=== PATIENT | female | born 1960 | race Caucasian/White ===

== ENCOUNTER 2016-12-19 18:15 | Emergency (ER) | payer OTHER ==
[2016-12-19 18:35] VITALS: PULSE 55; TEMP 98.7; BMI 28.2
--- NOTE | 2016-12-19 20:20 | PDOC ---
History of Present Illness - General History Source: Patient Exam Limitations: No Limitations - History of Present Illness Initial Comments: 12/19/16 20:33 The patient is a 56 year old female with significant past medical history of hypertension, autoimmune hepatitis, and carcinoid syndrome (two abdominal carcinoids remover approximately 8-9 years ago. No symptoms since tumors removed ) who presents to the ED for 1 month of increasing left flank pain. Patient reports her pain is persistent and does not radiate. No exacerbating or alleviating factors. Denies dysuria, hematuria, urgency, and frequency. States using tylenol or motrin for the pain with no improvement. Denies any trauma to the area. Denies any recent travels or sick contacts. The patient denies fever, chills, cough, SOB, chest pain, and palpitations. The patient denies abdominal pain, nausea, vomiting, and diarrhea. Allergies: oxycodone HCl, oxycodone, acetaminophen, hydromorphone HCl Social History: No alcohol, tobacco, or drug use reported. Past Surgical History: appendectomy, salpingo oophorectomy, cholecystectomy PCP: Dr. Joyce Sen GI: Dr. Danny [place] General Surgeon: Dr. 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, ACUTE/EMPLOYEE Time Seen by Provider: 12/19/16 19:30 Past History <Viviana Dudley - Last Filed: 12/19/16 20:33> - Past Medical History Anemia: Yes Asthma: No Cancer: Yes (carcenoid sydrome, remission) Cardiac Disorders: No CVA: No COPD: No CHF: No Dementia: No Diabetes: No GI Disorders: Yes (GERD) Disorders: No HTN: Yes Hypercholesterolemia: No Liver Disease: No Seizures: No Thyroid Disease: No - Surgical History Abdominal Surgery: Yes (salpingo oopherectomy) Appendectomy: Yes Cardiac Surgery: No Cholecystectomy: Yes Lung Surgery: No Neurologic Surgery: No Orthopedic Surgery: No - Immunization History Td Vaccination: Yes TDAP Vaccination: Yes Immunization Up to Date: Yes - Psycho/Social/Smoking Cessation Hx Anxiety: No Suicidal Ideation: No Smoking Status: No Smoking History: Never smoked Have you smoked in the past 12 months: No Number of Cigarettes Smoked Daily: 0 Information on smoking cessation initiated: No Hx Alcohol Use: No Drug/Substance Use Hx: No Substance Use Type: None Hx Substance Use Treatment: No <Saravanan Merida - Last Filed: 12/19/16 23:32> - Past Medical History Allergies/Adverse Reactions: Allergies Allergy/AdvReac Type Severity Reaction Status Date / Time oxycodone HCl [From Percocet] Allergy Severe Difficulty Verified 12/19/16 18:26 Breathing oxycodone Allergy Intermediate Itching Verified 12/19/16 18:26 acetaminophen [From Percocet] Allergy Verified 12/19/16 18:26 hydromorphone HCl Allergy Verified 12/19/16 18:26 [From Dilaudid] Home Medications: Ambulatory Orders Nifedipine [Procardia Xl] 60 mg PO DAILY 12/09/15 Alprazolam [Xanax Xr] 1 mg PO PRN 12/19/16 Ibuprofen 800 mg PO TID #30 tablet 12/19/16 Methocarbamol [Robaxin -] 750 mg PO Q8H #30 tablet 12/19/16 Tramadol HCl [Ultram -] 50 mg PO Q6H #20 tablet MDD 4 12/19/16 Review of Systems - Review of Systems Able to Perform ROS?: Yes Comments:: 12/19/16 20:33 CONSTITUTIONAL: Absent: fever, no chills, no fatigue EYES: Absent: visual changes ENT: Absent: ear pain, no sore throat CARDIOVASCULAR: Absent: chest pain, no palpitations RESPIRATORY: Absent: cough, no SOB GI: Absent: abdominal pain, no nausea, no vomiting, no constipation, no diarrhea GENITOURINARY: +L flank pain Absent: dysuria, no frequency, no hematuria MUSCULOSKELETAL: Absent: back pain, no arthralgia, no myalgia SKIN: Absent: rash NEURO: Absent: headache <Viviana Dudley - Last Filed: 12/19/16 20:33> *Physical Exam - Vital Signs Last Vital Signs Temp Pulse Resp BP Pulse Ox 98.7 F 55 L 18 181/90 100 12/19/16 18:27 12/19/16 18:27 12/19/16 18:27 12/19/16 18:27 12/19/16 18:27 - Physical Exam Comments: 12/19/16 20:33 GENERAL: Well-appearing, well-nourished. Mild distress. HEENT: Normocephalic, atraumatic. PERRL, EOM intact. CARDIOVASCULAR: Normal S1, S2. Regular rate and rhythm. PULMONARY: Clear to auscultation bilaterally. ABDOMEN: Soft, non-distended, non-tender. EXTREMITIES: Normal ROM in all four extremities. No gross deformities. MUSCULOSKELETAL: Left cva tenderness SKIN: Warm, dry. No rash NEUROLOGICAL: No focal neurological deficits. <Viviana Dudley - Last Filed: 12/19/16 20:33> - Vital Signs Last Vital Signs Temp Pulse Resp BP Pulse Ox 98.7 F 55 L 18 181/90 100 12/19/16 18:27 12/19/16 18:27 12/19/16 18:27 12/19/16 18:27 12/19/16 18:27 <Saravanan Merida - Last Filed: 12/19/16 23:32> ED Treatment Course - LABORATORY CBC & Chemistry Diagram: 12/19/16 20:33 12/19/16 20:33 <Saravanan Merida - Last Filed: 12/19/16 23:32> Medical Decision Making - Medical Decision Making 12/19/16 23:31 Dr. Merida: The scribe's documentation has been prepared under my direction and personally reviewed by me in its entirery. I confirm that the note above accurately reflects all work, treatment, procedures, and medical decision making performed by me. All studies return to be stable. Pt still having slight pain despite treatment in the department. Pt to be discharged and follow up with pcp. <Saravanan Merida - Last Filed: 12/19/16 23:32> *DC/Admit/Observation/Transfer - Attestations Scribe Attestion: 12/19/16 20:34 Documentation prepared by Viviana Dudley, acting as medical office secretary for Saravanan Merida MD/DO. <Viviana Dudley - Last Filed: 12/19/16 20:33> - Discharge Dispostion Admit: No <Saravanan Merida - Last Filed: 12/19/16 23:32> Diagnosis at time of Disposition: Back pain Qualifiers: Chronicity: acute Back pain laterality: left Sciatica presence: without sciatica - Discharge Dispostion Disposition: HOME Condition at time of disposition: Stable - Prescriptions Prescriptions: Ibuprofen 800 mg PO TID #30 tablet Methocarbamol [Robaxin -] 750 mg PO Q8H #30 tablet Tramadol HCl [Ultram -] 50 mg PO Q6H #20 tablet MDD 4 - Referrals Referrals: Joyce Sen MD [Primary Care Provider] - - Patient Instructions Printed Discharge Instructions: DI for Thoracic Back Pain, DI for Low Back Pain
[2016-12-19] MEDS ORDERED: KETOROLAC TROMETHAMINE 30 MG/1 ML VIAL IVPUSH ONE (20:22)
[2016-12-19] MEDS ORDERED: KETOROLAC TROMETHAMINE 30 MG/1 ML VIAL ONE (20:38)
[2016-12-19 20:44] LABS: BASOPHIL 0.8 % (0-2.0); EOSINOPHIL 2.5 % (0-4.5); MCHC 32.5 g/dl (32.0-36.0); MEAN CELL VOLUME 92.3 fl (80-96); MEAN PLT VOLUME 10.5 fl (7.5-11.1); NEUTROPHILS 49.3 % (42.8-82.8); PLATELET COUNT 247 K/MM3 (134-434); RDW 14.9 % (11.6-15.6); WHITE BLOOD COUNT 6.1 K/mm3 (4.0-10.0)
[2016-12-19 21:02] LABS: INR 1.06 (0.82-1.09); PROTHROMBIN TIME (PATIENT) 11.7 SEC (9.98-11.88)
[2016-12-19 21:12] LABS: ALBUMIN 4.2 g/dl (3.4-5.0); AMYLASE 51 U/L (25-115); ANION GAP 12 (8-16); BILIRUBIN,TOTAL 0.8 mg/dL (0.2-1.0); CALCIUM 8.8 mg/dL (8.5-10.1); CO2 25 mmol/L (21-32); COCKROFT - GAULT 99.5605; CREATININE 0.8 mg/dL (0.55-1.02); GLUCOSE,RANDOM 80 mg/dL (74-106); MAGNESIUM 2.2 mg/dL (1.8-2.4); SGOT/AST 23 U/L (15-37); SGPT/ALT 26 U/L (12-78); TOT PROT 8.3 g/dl (6.4-8.2)
[2016-12-19 21:13] LABS: ALK PHOS 92 U/L (45-117); TROPONIN I < 0.02 ng/ml (0.00-0.05)
[2016-12-19 21:41] LABS: URINE APPEARANCE CLEAR; URINE BILIRUBIN NEGATIVE (NEGATIVE); URINE BLOOD NEGATIVE (NEGATIVE); URINE COLOR LTYELLOW; URINE GLUCOSE (UA) NEGATIVE (NEGATIVE); URINE KETONE NEGATIVE (NEGATIVE); URINE NITRITE NEGATIVE (NEGATIVE); URINE PROTEIN NEGATIVE (NEGATIVE); URINE UROBILINOGEN NEGATIVE E.U./dl (0.2-1.0)
[2016-12-19 22:04] LABS: URINE LEUK ESTERASE TRACE (NEGATIVE)
[2016-12-19 22:37] LABS: URINE MUCUS RARE; URINE WBC 2 /hpf (3-5)
[2016-12-19] MEDS ORDERED: GABAPENTIN 300 MG CAPSULE (FP) PO ONE (22:47)
[2016-12-19] MEDS ORDERED: GABAPENTIN 100 MG CAPSULE (FP) ONE (22:54)
[2016-12-19] MEDS ORDERED: morphine CARPU-JECT 2 MG/1 ML DISP.SYRIN IVPUSH ONE (23:25)
[2016-12-19] MEDS ORDERED: morphine CARPU-JECT 2 MG/1 ML DISP.SYRIN ONE (23:47)
[2016-12-20 00:04] VITALS: BP 146/90
[2016-12-20 14:52] LABS: URINE RBC <1 /hpf (0-3)
== END 2016-12-20 00:05 | disposition home or self-care (01) ==
LOC: JER 18:15
PROC: 3E033NZ Introduction of Analgesics, Hypnotics, Sedatives into Peripheral Vein, Percutaneous Approach (ICD-10-PCS; principal; 2016-12-19)
PROC: 3E0233Z Introduction of Anti-inflammatory into Muscle, Percutaneous Approach (ICD-10-PCS; 2016-12-19)
DX: M54.6 Pain in thoracic spine (principal); M54.5 Low back pain; I10 Essential (primary) hypertension; K75.4 Autoimmune hepatitis; E34.0 Carcinoid syndrome
CPT/HCPCS: 36415; 74176; 80053; 81003; 81015; 82150; 82550; 83690; 83735; 84484; 85025; 85610; 87086; 99285-25

== ENCOUNTER 2016-12-20 00:53 | Emergency (ER) | payer OTHER ==
[2016-12-20] MEDS ORDERED: ASPIRIN 81 MG CHEWABLE TABLETS PO ONE (00:55)
--- NOTE | 2016-12-20 00:55 | PDOC ---
History of Present Illness - General History Source: Patient Exam Limitations: No Limitations - History of Present Illness Initial Comments: 12/20/16 02:28 The patient is a 56 year old female with significant past medical history of hypertension, autoimmune hepatitis, and carcinoid syndrome (two abdominal carcinoids remover approximately 8-9 years ago. No symptoms since tumors removed ) who presents to the ED for chest pain and SOB prior to arrival. Patient was in the ER a few hours ago for left flank pain, where she had a spiral CT, which revealed no signs of sbo, renal calculi and had stable mediastinal lymph nodes that occurred in May 2015. Patient was treated and upon discharge she received 2 mg of morphine for relief of pain. She reports 15 minutes after her discharge she developed chest pain and SOB. Patient states she has pain in her epigastric region that radiates laterally across her chest. Denies lightheadedness, diaphoresis, jaw pain, arm pain, shoulder pain, nausea, or vomiting. The patient denies fever, chills, cough, abdominal pain, and diarrhea. Allergies: oxycodone HCl, oxycodone, acetaminophen, hydromorphone HCl Social History: No alcohol, tobacco, or drug use reported. Past Surgical History: appendectomy, salpingo oophorectomy, cholecystectomy PCP: Dr. Joyce Sen GI: Dr. Danny [place] General Surgeon: Dr. Jabier Leon <Viviana Dudley - Last Filed: 12/20/16 05:32> - General History Source: Patient <Saravanan Merida - Last Filed: 12/20/16 06:23> - General Chief Complaint: Chest Pain Stated Complaint: PAIN Time Seen by Provider: 12/20/16 00:55 Past History <Viviana Dudley - Last Filed: 12/20/16 05:32> - Past Medical History Anemia: Yes Asthma: No Cancer: Yes (carcenoid sydrome, remission) Cardiac Disorders: No CVA: No COPD: No CHF: No Dementia: No Diabetes: No GI Disorders: Yes (GERD) Disorders: No HTN: Yes Hypercholesterolemia: No Liver Disease: No Seizures: No Thyroid Disease: No - Surgical History Abdominal Surgery: Yes (salpingo oopherectomy) Appendectomy: Yes Cardiac Surgery: No Cholecystectomy: Yes Lung Surgery: No Neurologic Surgery: No Orthopedic Surgery: No - Immunization History Td Vaccination: Yes TDAP Vaccination: Yes Immunization Up to Date: Yes - Psycho/Social/Smoking Cessation Hx Anxiety: No Suicidal Ideation: No Smoking Status: No Smoking History: Never smoked Have you smoked in the past 12 months: No Number of Cigarettes Smoked Daily: 0 Hx Alcohol Use: No Drug/Substance Use Hx: No Substance Use Type: None Hx Substance Use Treatment: No <Saravanan Merida - Last Filed: 12/20/16 06:23> - Past Medical History Allergies/Adverse Reactions: Allergies Allergy/AdvReac Type Severity Reaction Status Date / Time oxycodone HCl [From Percocet] Allergy Severe Difficulty Verified 12/20/16 00:55 Breathing oxycodone Allergy Intermediate Itching Verified 12/20/16 00:55 acetaminophen [From Percocet] Allergy Verified 12/20/16 00:55 hydromorphone HCl Allergy Verified 12/20/16 00:55 [From Dilaudid] Home Medications: Ambulatory Orders Nifedipine [Procardia Xl] 60 mg PO DAILY 12/09/15 Alprazolam [Xanax Xr] 1 mg PO PRN 12/19/16 Ibuprofen 800 mg PO TID #30 tablet 12/19/16 Methocarbamol [Robaxin -] 750 mg PO Q8H #30 tablet 12/19/16 Tramadol HCl [Ultram -] 50 mg PO Q6H #20 tablet MDD 4 12/19/16 Review of Systems - Review of Systems Able to Perform ROS?: Yes Comments:: 12/20/16 02:28 CONSTITUTIONAL: Absent: fever, chills, diaphoresis, generalized weakness, malaise, loss of appetite HEENT: Absent: rhinorrhea, nasal congestion, throat pain, throat swelling, difficulty swallowing, mouth swelling, ear pain, eye pain, visual Changes CARDIOVASCULAR: +chest pain Absent: syncope, palpitations, irregular heart rate, lightheadedness , peripheral edema RESPIRATORY: +SOB Absent: cough, dyspnea with exertion, orthopnea, wheezing, stridor, hemoptysis GASTROINTESTINAL: Absent: abdominal pain, abdominal distension, nausea, vomiting, diarrhea, constipation, melena, hematochezia GENITOURINARY: Absent: dysuria, frequency, urgency, hesitancy, hematuria, flank pain, genital pain MUSCULOSKELETAL: Absent: myalgia, arthralgia, joint swelling SKIN: Absent: rash, itching, pallor NEUROLOGIC: Absent: headache, focal weakness or paresthesias, dizziness, unsteady gait, seizure, mental status changes, bladder or bowel incontinence <Viviana Dudley - Last Filed: 12/20/16 05:32> *Physical Exam - Vital Signs Last Vital Signs Temp Pulse Resp BP Pulse Ox 48 L 12 211/102 98 12/20/16 01:25 12/20/16 01:21 12/20/16 01:21 12/20/16 01:25 - Physical Exam Comments: 12/20/16 02:28 GENERAL: Well developed, well nourished. Awake and alert. Moderate distress. HEENT: Normocephalic, atraumatic. PERRLA, EOMI. No conjunctival pallor. Sclera are non- icteric. Moist mucous membranes. Oropharynx is clear. NECK: Supple. Full ROM. No JVD. Carotid pulses 2+ and symmetric, without bruits. No thyromegaly. No lymphadenopathy. CARDIOVASCULAR: Bradycardia. Regular rhythm. No murmurs, rubs, or gallops. Distal pulses are 2+ and symmetric. PULMONARY: No evidence of respiratory distress. Lungs clear to auscultation bilaterally. No wheezing, rales or rhonchi. ABDOMINAL: Soft. Non-tender. Non-distended. No rebound or guarding. No organomegaly. Normoactive bowel sounds. MUSCULOSKELETAL Normal range of motion at all joints. No bony deformities or tenderness. No CVA tenderness. EXTREMITIES: No cyanosis. No clubbing. No edema. No calf tenderness. SKIN: Warm and dry. Normal capillary refill. No rashes. No jaundice. NEUROLOGICAL: Alert, awake, appropriate. Cranial nerves 2-12 intact. Moving all extremities. No gross focal neurological deficits. <Doni Dudleyta - Last Filed: 12/20/16 05:32> Heart Score/ECG Review - ECG Impressions Comment:: 12/20/16 02:08 Sinus bradycardia @52bpm Otherwise normal ECG <Viviana Dudley - Last Filed: 12/20/16 05:32> ED Treatment Course - LABORATORY CBC & Chemistry Diagram: 12/20/16 01:15 12/20/16 01:15 - ADDITIONAL ORDERS Additional order review: Laboratory Results 12/20/16 12/20/16 01:15 01:15 INR 1.04 PTT (Actin FS) 33.9 D-Dimer < 200 Sodium 145 Potassium 3.4 L Chloride 105 Carbon Dioxide 25 Anion Gap 15 BUN 11 Creatinine 0.8 Creat Clearance w eGFR > 60 Random Glucose 92 Calcium 8.7 Magnesium 2.2 Total Bilirubin 0.9 AST 32 D ALT 28 Alkaline Phosphatase 92 Creatine Kinase 132 Troponin I < 0.02 B-Natriuretic Peptide 81.50 Total Protein 7.9 Albumin 3.9 12/20/16 01:15 RBC 4.50 MCV 91.5 MCHC 33.3 RDW 14.5 MPV 10.2 Neutrophils % 39.7 L Lymphocytes % 45.1 H Monocytes % 11.3 H Eosinophils % 3.2 Basophils % 0.7 - Medications Given in the ED: ED Medications Discontinued Medications Generic Name Dose Route Start Last Admin Trade Name Freq PRN Reason Stop Dose Admin Diphenhydramine HCl 25 mg 12/20/16 00:57 12/20/16 01:06 Benadryl Injection - IVPB 12/20/16 00:58 25 mg ONCE ONE Administration <Viviana Dudley - Last Filed: 12/20/16 05:32> - LABORATORY CBC & Chemistry Diagram: 12/20/16 01:15 12/20/16 01:15 <Saravanan Merida - Last Filed: 12/20/16 06:23> Medical Decision Making - Medical Decision Making 12/20/16 05:[address] Joyce Sen (via answering service) at 5:02 Awaiting call back 12/20/16 05:28 Second call placed to Dr. Sen (via answering service) at 5:28 Awaiting call back 12/20/16 05:33 Patient's case discussed with Dr. Sen at 5:33 <Viviana Dudley - Last Filed: 12/20/16 05:32> - Medical Decision Making 12/20/16 01:51 BP now 177/96. HR 50. will wait for lab work. 12/20/16 05:39 Dr. Merida: The scribe's documentation has been prepared under my direction and personally reviewed by me in its entirery. I confirm that the note above accurately reflects all work, treatment, procedures, and medical decision making performed by me. Pt currently sleepy from the Benadryl received early in the shift. Blood Pressure has improve. Spoke to Dr. Joyce Sen. States that if vitals are stable and pt feels better, pt can be discharged. Will sign out for re- assessment 12/20/16 06:22 Pt feels better. States she feels better. Will discharge. Pt to follow up with Dr. Joyce Sen. <Saravanan Merida - Last Filed: 12/20/16 06:23> *DC/Admit/Observation/Transfer - Attestations Scribe Attestion: 12/20/16 02:28 Documentation prepared by Viviana Dudley, acting as clinical medical assistant for Saravanan Merida MD/DO. <Viviana Dudley - Last Filed: 12/20/16 05:32> - Discharge Dispostion Admit: No <Saravanan Merida - Last Filed: 12/20/16 06:23> Diagnosis at time of Disposition: HTN Allergic reaction Qualifiers: Encounter type: initial encounter Qualified Code(s): T78.40XA - Allergy, unspecified, initial encounter - Discharge Dispostion Disposition: HOME Condition at time of disposition: Stable - Patient Instructions Printed Discharge Instructions: DI for General Allergic Reactions, High Blood Pressure
[2016-12-20 01:10] VITALS: BMI 24.2
[2016-12-20] MEDS ORDERED: LORAZEPAM CARPU-JECT 2 MG/ML DISP.SYRIN IVPUSH ONE (01:10)
[2016-12-20] MEDS ORDERED: LORAZEPAM CARPU-JECT 2 MG/ML DISP.SYRIN ONE (01:12)
[2016-12-20 01:31] LABS: BASOPHIL 0.7 % (0-2.0); EOSINOPHIL 3.2 % (0-4.5); MCH 30.4 pg (25.7-33.7); MCHC 33.3 g/dl (32.0-36.0); MEAN CELL VOLUME 91.5 fl (80-96); MEAN PLT VOLUME 10.2 fl (7.5-11.1); NEUTROPHILS 39.7 % (42.8-82.8); PLATELET COUNT 268 K/MM3 (134-434); RDW 14.5 % (11.6-15.6); WHITE BLOOD COUNT 6.5 K/mm3 (4.0-10.0)
[2016-12-20 01:54] LABS: ALBUMIN 3.9 g/dl (3.4-5.0); ANION GAP 15 (8-16); BILIRUBIN,TOTAL 0.9 mg/dL (0.2-1.0); CALCIUM 8.7 mg/dL (8.5-10.1); CO2 25 mmol/L (21-32); CREATININE 0.8 mg/dL (0.55-1.02); GLUCOSE,RANDOM 92 mg/dL (74-106); MAGNESIUM 2.2 mg/dL (1.8-2.4); SGOT/AST 32 U/L (15-37); SGPT/ALT 28 U/L (12-78); TOT PROT 7.9 g/dl (6.4-8.2)
[2016-12-20 01:55] LABS: INR 1.04 (0.82-1.09)
[2016-12-20 01:57] LABS: ALK PHOS 92 U/L (45-117); TROPONIN I < 0.02 ng/ml (0.00-0.05)
[2016-12-20 01:58] LABS: ACTIVATED PTT 33.9 SECONDS (26.9-34.4); D-DIMER < 200 ng/ml (<200-235)
[2016-12-20 05:18] VITALS: BP 143/86; PULSE 42
--- NOTE | 2016-12-20 10:44 | EKG ---
Test Reason : Blood Pressure : / mmHG Vent. Rate : 052 BPM Atrial Rate : 052 BPM P-R Int : 160 ms QRS Dur : 082 ms QT Int : 466 ms P-R-T Axes : 041 013 026 degrees QTc Int : 433 ms SINUS BRADYCARDIA OTHERWISE NORMAL ECG WHEN COMPARED WITH ECG OF 30-JAN-2015 09:52, NO SIGNIFICANT CHANGE WAS FOUND BASELINE ARTIFACT Confirmed by SHANNON MULLIGAN MD ([id number]) on 12/20/2016 10:44:34 AM Referred By: Confirmed By:SHANNON MULLIGAN MD
== END 2016-12-20 06:31 | disposition home or self-care (01) ==
LOC: JER 00:53
PROC: 3E033GC Introduction of Other Therapeutic Substance into Peripheral Vein, Percutaneous Approach (ICD-10-PCS; principal; 2016-12-20)
DX: I10 Essential (primary) hypertension (principal); T78.40XA Allergy, unspecified, initial encounter; K75.4 Autoimmune hepatitis; E34.0 Carcinoid syndrome
CPT/HCPCS: 36415; 71010-TC; 80053; 82550; 83735; 83880; 84484; 85025; 85379; 85610; 85730; 93005; 93010; 99285-25

== ENCOUNTER 2017-02-21 12:38 | Emergency (ER) | payer OTHER ==
[2017-02-21 12:44] VITALS: BP 160/99; PULSE 85; TEMP 98.7; BMI 33.2
--- NOTE | 2017-02-21 14:01 | PDOC ---
History of Present Illness - General Chief Complaint: Cold Symptoms Stated Complaint: CHEST PRESSURE Time Seen by Provider: 02/21/17 14:01 History Source: Patient - History of Present Illness Initial Comments: 02/21/17 14:06 Patient is a 56-year-old female with PMH of HTN, autoimmune hepatitis, hx of carcinoid tumors, who presents to the emergency department complaining of body aches, chest pressure, congestion, and cough. Patient states that her symptoms began yesterday. He states that she feels short of breath when trying to take a deep breath and that there is some pressure in her chest as a result. She states that she was coughing all night. She took NyQuil with little relief. She is not taking anything for pain. Admits to frequency and urgency. Denies fevers , chills, chest pain, wheezing, palpitations, edema, nausea, vomiting and diarrhea. Past History - Travel Traveled outside of the country in the last 30 days: No Close contact w/someone who was outside of country & ill: No - Past Medical History Allergies/Adverse Reactions: Allergies Allergy/AdvReac Type Severity Reaction Status Date / Time oxycodone HCl [From Percocet] Allergy Severe Difficulty Verified 02/21/17 12:40 Breathing oxycodone Allergy Intermediate Itching Verified 02/21/17 12:40 hydromorphone HCl Allergy Verified 02/21/17 12:40 [From Dilaudid] morphine AdvReac Difficulty Verified 02/21/17 12:40 Breathing Home Medications: Ambulatory Orders Nifedipine [Procardia Xl] 60 mg PO DAILY 12/09/15 Alprazolam [Xanax Xr] 1 mg PO PRN 12/19/16 Ibuprofen 800 mg PO TID #30 tablet 12/19/16 Methocarbamol [Robaxin -] 750 mg PO Q8H #30 tablet 12/19/16 Tramadol HCl [Ultram -] 50 mg PO Q6H #20 tablet MDD 4 12/19/16 Albuterol Sulfate Inhaler - [Ventolin HFA Inhaler -] 1 - 2 inh PO Q4H #1 inhaler 02/21/17 Sulfamethoxazole/Trimethoprim [Bactrim Ds -] 1 tab PO BID #14 tablet 02/21/17 Anemia: Yes Asthma: No Cancer: Yes (carcenoid sydrome, remission) Cardiac Disorders: No CVA: No COPD: No CHF: No Dementia: No Diabetes: No GI Disorders: Yes (GERD) Disorders: No HTN: Yes Hypercholesterolemia: No Liver Disease: No Seizures: No Thyroid Disease: No - Surgical History Abdominal Surgery: Yes (salpingo oopherectomy) Appendectomy: Yes Cardiac Surgery: No Cholecystectomy: Yes Lung Surgery: No Neurologic Surgery: No Orthopedic Surgery: No - Immunization History Td Vaccination: Yes TDAP Vaccination: Yes Immunization Up to Date: Yes - Psycho/Social/Smoking Cessation Hx Anxiety: No Suicidal Ideation: No Smoking Status: No Smoking History: Never smoked Have you smoked in the past 12 months: No Number of Cigarettes Smoked Daily: 0 Information on smoking cessation initiated: No Hx Alcohol Use: No Drug/Substance Use Hx: No Substance Use Type: None Hx Substance Use Treatment: No Review of Systems - Review of Systems Able to Perform ROS?: Yes Is the patient limited Sami proficient: No Constitutional: Yes: Chills, Fever (Tmax 101.4 F oral). No: Malaise, Weakness HEENTM: Yes: Nose Congestion, Throat Pain. No: Recent change in vision, Ear Discharge, Throat Swelling, Difficulty Swallowing Respiratory: Yes: Cough, Shortness of Breath Cardiac (ROS): Yes: Chest Tightness. No: Chest Pain, Lightheadedness, Palpitations ABD/GI: No: Diarrhea, Nausea, Vomiting : Yes: Frequency, Urgency. No: Burning, Dysuria, Hematuria Neurological: Yes: Headache. No: Numbness, Paresthesia, Weakness All Other Systems: Reviewed and Negative *Physical Exam - Vital Signs Last Vital Signs Temp Pulse Resp BP Pulse Ox 98.7 F 85 18 160/99 100 02/21/17 12:42 02/21/17 12:42 02/21/17 12:42 02/21/17 12:42 02/21/17 12:42 - Physical Exam General Appearance: Yes: Nourished, Appropriately Dressed, Mild Distress ( Sitting on exam bed, AAOx3, ) HEENT: positive: EOMI, NIMA, TMs Normal, Pharyngeal Erythema, Nasal Congestion, Rhinorrhea. negative: Tonsillar Exudate, Tonsillar Erythema, TM Erythema Respiratory/Chest: positive: Normal Breath Sounds, Decreased Breath Sounds ( decreased sounds to the bases). negative: Respiratory Distress, Accessory Muscle Use, Rales, Rhonchi, Wheezing Cardiovascular: positive: Regular Rhythm, Regular Rate, S1, S2 (present). negative: Murmur Integumentary: positive: Normal Color, Warm, Moist. negative: Erythema, Rash Neurologic: positive: civil technician II-XII NML intact, Fully Oriented, Alert, Normal Mood/ Affect, Normal Response, Motor Strength 12/16 Medical Decision Making - Medical Decision Making 02/21/17 13:01 He 6-year-old female who presents for with chest tightness and shortness of breath as well as cold symptoms. We will give patient one DuoNeb treatment now and Toradol for her aches. Send urine for UA and UC. We will obtain chest x- ray. We'll reevaluate. EKG obtained in triage shows a normal sinus rhythm with a rate of 73. Flattened T waves in leads 3 and aVF. Otherwise no acute ST-T wave elevations. 02/21/17 13:57 Patient feels better after first DuoNeb treatment will order second DuoNeb as she is still a little diminished at the bases. 02/21/17 14:29 Lungs sound clear after 2 DuoNeb treatments x-ray shows no evidence of pneumonia or acute pulmonary pathology. Urine shows 3+ leuks with blood and white blood cells. We'll treat for UTI at this point we'll place patient on Bactrim DS twice a day and give symptomatic relief for her cold symptoms we'll prescribe albuterol inhaler. Discharge home at this time. Patient is comfortable with discharge plans understands all discharge instructions and all questions were answered at this time. *DC/Admit/Observation/Transfer Diagnosis at time of Disposition: Urinary tract infection Qualifiers: Urinary tract infection type: acute cystitis Hematuria presence: with hematuria Qualified Code(s): N30.01 - Acute cystitis with hematuria Upper respiratory infection Qualifiers: URI type: unspecified viral URI Qualified Code(s): J06.9 - Acute upper respiratory infection, unspecified - Discharge Dispostion Disposition: HOME Condition at time of disposition: Improved Admit: No - Prescriptions Prescriptions: Sulfamethoxazole/Trimethoprim [Bactrim Ds -] 1 tab PO BID #14 tablet Albuterol Sulfate Inhaler - [Ventolin HFA Inhaler -] 1 - 2 inh PO Q4H #1 inhaler - Patient Instructions Printed Discharge Instructions: DI for Common Cold, DI for Urinary Tract Infection (UTI) Additional Instructions: You have a urinary tract infection and an upper respiratory infection. You were prescribed an antibiotic for your UTI. Take the full amount of antibiotic even if you feel better. Drink plenty of fluids including water and cranberry juice. You may use tylenol or ibuprofen as needed for pain. You were also prescribed an albuterol inhaler to be used as needed for SOB. You may use over the counter cold medication for symptomatic relief. Follow up with your primary care doctor in 48 hours Return to the ED if you have worsening shortness of breath, fevers, chest pain, difficulty breathing, or any other changes in your symptoms. - Post Discharge Activity Work/School Note: Back to Work
[2017-02-21 14:58] LABS: URINE APPEARANCE CLEAR; URINE BILIRUBIN NEGATIVE (NEGATIVE); URINE COLOR STRAW; URINE GLUCOSE (UA) NEGATIVE (NEGATIVE); URINE KETONE NEGATIVE (NEGATIVE); URINE NITRITE NEGATIVE (NEGATIVE); URINE PROTEIN NEGATIVE (NEGATIVE); URINE UROBILINOGEN NEGATIVE E.U./dl (0.2-1.0)
[2017-02-21 14:59] LABS: URINE BLOOD 1+ (NEGATIVE); URINE LEUK ESTERASE 3+ (NEGATIVE)
[2017-02-21 15:00] LABS: URINE BACTERIA RARE /hpf (NONE SEEN); URINE MUCUS RARE; URINE RBC 1 /hpf (0-3); URINE WBC 16 /hpf (3-5)
[2017-02-21] MEDS ORDERED: ALBUTEROL SO4 2.5/IPRATROPIUM 0.5 INH SOL 3 ML VIAL.NEB. NEB ONE (15:00)
--- NOTE | 2017-02-27 14:44 | PDOC ---
Patient Follow-up (Call Back) - Post ED Follow - Up Condition at time of discharge: Improved Disposition at time of original discharge: HOME Reason for Call Back: Abnwl. Microbiology (02/21/17 urine c & S showed strep agalactiae group B >100,000 not sensitive to bactrim DS, pt. called left message she called back told to stop bactrim DS and sent rx for levaquin 250 mg daily for 5 days, pt told to not do any strenuous activities or exercise while on this medication. Told to follow up with her PCP for repeat urine testing when medication completed.)
--- NOTE | 2017-03-01 11:41 | EKG ---
Test Reason : Blood Pressure : / mmHG Vent. Rate : 073 BPM Atrial Rate : 073 BPM P-R Int : 154 ms QRS Dur : 082 ms QT Int : 396 ms P-R-T Axes : 031 005 013 degrees QTc Int : 436 ms NORMAL SINUS RHYTHM NORMAL ECG WHEN COMPARED WITH ECG OF 20-DEC-2016 00:53, NO SIGNIFICANT CHANGE WAS FOUND Confirmed by ADAMS MCRAE MD ([id number]) on 03/01/2017 11:40:42 AM Referred By: Confirmed By:ADAMS MCRAE MD
== END 2017-02-21 15:43 | disposition home or self-care (01) ==
LOC: JERFT 12:38
PROC: 3E0F7GC Introduction of Other Therapeutic Substance into Respiratory Tract, Via Natural or Artificial Opening (ICD-10-PCS; principal; 2017-02-21)
DX: J06.9 Acute upper respiratory infection, unspecified (principal); N30.01 Acute cystitis with hematuria
CPT/HCPCS: 71020-TC; 81003; 81015; 87086; 87186; 93005; 93010; 99281-25

== ENCOUNTER 2017-08-19 23:10 | Observation (INO) | payer OTHER ==
--- NOTE | 2017-08-19 23:45 | PDOC ---
History of Present Illness - General History Source: Patient Exam Limitations: No Limitations - History of Present Illness Initial Comments: 08/20/17 00:27 The patient is a 57 year old female, with a significant past medical history of hypertension and carcinoid syndrome (in remission), who presents to the emergency department with, left sided chest pain beginning approx. 29 hours ago. The patient reports that Monday evening around 7pm she began experiencing the chest pain while sitting on the couch watching television. The patient reports she took her blood pressure on a home blood pressure machine and noted her blood pressure was elevated so she took her blood pressure medication with mild relief. Patient reports she woke up this morning with the same chest pain and took her blood pressure medicine again with mild relief. Patient reports the left sided chest pain is constant, radiates to the left arm and neck, and describes the pain as bricks sitting on her chest. Patient reports she experienced the exact same chest pain a couple years ago. She reports associated symptoms of a gradual onset global headache 3 days ago and feeling warm. Patient reports familial history of heart disease from her mother and father. She denies recent travel or surgery. She denies recent palpitations or shortness of breath. She denies recent swelling or calf tenderness. She denies recent fevers, chills, or dizziness. She denies recent nausea, vomit, diarrhea or constipation. She denies recent dysuria, frequency, urgency or hematuria. She last had a stress test [address] James that she reports is negative. Allergies: oxycodone HCL, oxycodone, hydromorphone HCl, morphine Past surgical history: None reported. Primary Care Physician: Dr. Joyce Pena Line Manager: Dr. James <Kumar Maurer - Last Filed: 08/20/17 00:30> <Olayinka Chavis - Last Filed: 08/20/17 01:35> - General Stated Complaint: CHEST PAIN Past History <Kumar Maurer - Last Filed: 08/20/17 00:30> - Past Medical History Anemia: Yes Asthma: No Cancer: Yes (carcenoid sydrome, remission) Cardiac Disorders: No CVA: No COPD: No CHF: No Dementia: No Diabetes: No GI Disorders: Yes (GERD) Disorders: No HTN: Yes Hypercholesterolemia: No Liver Disease: No Seizures: No Thyroid Disease: No - Surgical History Abdominal Surgery: Yes (salpingo oopherectomy) Appendectomy: Yes Cardiac Surgery: No Cholecystectomy: Yes Lung Surgery: No Neurologic Surgery: No Orthopedic Surgery: No - Immunization History Td Vaccination: Yes TDAP Vaccination: Yes Immunization Up to Date: Yes - Suicide/Smoking/Psychosocial Hx Smoking Status: No Smoking History: Never smoked Have you smoked in the past 12 months: No Number of Cigarettes Smoked Daily: 0 Hx Alcohol Use: No Drug/Substance Use Hx: No Substance Use Type: None Hx Substance Use Treatment: No <Nassef,Yomna - Last Filed: 08/20/17 01:35> - Past Medical History Allergies/Adverse Reactions: Allergies Allergy/AdvReac Type Severity Reaction Status Date / Time oxycodone HCl [From Percocet] Allergy Severe Difficulty Verified 08/19/17 23:48 Breathing oxycodone Allergy Intermediate Itching Verified 08/19/17 23:48 hydromorphone HCl Allergy Verified 08/19/17 23:48 [From Dilaudid] morphine AdvReac Difficulty Verified 08/19/17 23:48 Breathing Home Medications: Ambulatory Orders Nifedipine [Procardia Xl] 60 mg PO DAILY 12/09/15 Alprazolam [Xanax Xr] 1 mg PO PRN 12/19/16 Ibuprofen 800 mg PO TID #30 tablet 12/19/16 Methocarbamol [Robaxin -] 750 mg PO Q8H #30 tablet 12/19/16 Tramadol HCl [Ultram -] 50 mg PO Q6H #20 tablet MDD 4 12/19/16 Albuterol Sulfate Inhaler - [Ventolin HFA Inhaler -] 1 - 2 inh PO Q4H #1 inhaler 02/21/17 Amoxicillin - [Amoxicillin 875mg Tablet -] 875 mg PO BID #14 tab 02/27/17 Review of Systems - Review of Systems Comments:: 08/20/17 00:27 GENERAL/CONSTITUTIONAL: No fever or chills. No weakness. HEAD, EYES, EARS, NOSE AND THROAT: No change in vision. No ear pain or discharge. No sore throat. GASTROINTESTINAL: No nausea, vomiting, diarrhea or constipation. GENITOURINARY: No dysuria, frequency, or change in urination. CARDIOVASCULAR: +Chest pain. No shortness of breath. RESPIRATORY: No cough, wheezing, or hemoptysis. MUSCULOSKELETAL: No joint or muscle swelling or pain. SKIN: No rash NEUROLOGIC: +Headache. No vertigo, loss of consciousness, or change in strength/ sensation. ENDOCRINE: No increased thirst. No abnormal weight change. HEMATOLOGIC/LYMPHATIC: No anemia, easy bleeding, or history of blood clots. ALLERGIC/IMMUNOLOGIC: No hives or skin allergy. <Kumar Maurer - Last Filed: 08/20/17 00:30> *Physical Exam - Vital Signs Last Vital Signs Temp Pulse Resp BP Pulse Ox 98.1 F 101 H 20 158/87 98 08/19/17 23:41 08/19/17 23:41 08/19/17 23:41 08/19/17 23:41 08/19/17 23:41 - Physical Exam Comments: 08/20/17 00:27 GENERAL: Awake, alert, and fully oriented, in no acute distress HEAD: No signs of trauma EYES: PERRLA, EOMI, sclera anicteric, conjunctiva clear ENT: Auricles normal inspection, hearing grossly normal, nares patent, oropharynx clear without exudates. Moist mucosa NECK: Normal ROM, supple, no lymphadenopathy, JVD, or masses LUNGS: Breath sounds equal, clear to auscultation bilaterally. No wheezes, and no crackles HEART: Regular rate and rhythm, normal S1 and S2, no murmurs, rubs or gallops ABDOMEN: Soft, nontender, normoactive bowel sounds. No guarding, no rebound. No masses EXTREMITIES: Normal range of motion, no edema. No clubbing or cyanosis. No cords , erythema, or tenderness BACK: No midline spinal tenderness in cervical/thoracic/lumbar region NEUROLOGICAL: Normal speech, cranial nerves intact, negative pronator drift, 5/ 5 strength in all 4 extremities, normal sensation to light touch in all 4 extremities, normal cerebellar exam, normal gait, normal reflexes and tone SKIN: Warm, Dry, normal turgor, no rashes or lesions noted. <Kumar Maurer - Last Filed: 08/20/17 00:30> Heart Score/ECG Review - History History: Highly suspicious - Electrocardiogram EKG: Normal - Age Age: 45-65 - Risk Factors Risk Factors Heart Score: Yes Hx Hypertension, Yes Positive family hx of cardiac disease, Yes Hx Obesity Based on the list above the patient has:: >/=3 risk factors or Hx atherosclerotic disease - Troponin Troponin: </= normal limit - Score Heart Score - Total: 5 #1 08/20/17 00:29 Twelve-lead EKG was performed and reviewed by me. Sinus tachycardia, rate 103. Normal axis and intervals. No ST elevations or T-wave inversions. <Olayinka Chavis - Last Filed: 08/20/17 01:35> ED Treatment Course - LABORATORY CBC & Chemistry Diagram: 08/20/17 00:18 08/20/17 00:18 - Medications Given in the ED: ED Medications Discontinued Medications Generic Name Dose Route Start Last Admin Trade Name Freq PRN Reason Stop Dose Admin Aspirin 325 mg 08/20/17 00:11 08/20/17 00:18 Asa - PO 08/20/17 00:12 325 mg ONCE ONE Administration <Kumar Maurer - Last Filed: 08/20/17 00:30> - LABORATORY CBC & Chemistry Diagram: 08/20/17 00:18 08/20/17 00:18 <Olayinka Chavis - Last Filed: 08/20/17 01:35> Medical Decision Making - Medical Decision Making 08/20/17 00:13 57-year-old female with a history of hypertension and carcinoid syndrome presents with 2 days of left-sided chest pain radiating to the left arm and the left neck. Vitals with mildly elevated blood pressure to the 150s systolic, as well as tachycardia to 103. Exam unremarkable. Differential includes but is not limited to acute coronary syndrome versus PE versus pneumonia. Heart score is 5 , patient will require admission for cardiac workup. Will obtain labs including trop and dimer, CXR, give ASA, and admit 08/20/17 01:34 Pt signed out to Dr. Melendez for further management. <Olayinka Chavis - Last Filed: 08/20/17 01:35> *DC/Admit/Observation/Transfer - Attestations Scribe Attestion: 08/20/17 00:27 Documentation prepared by Kumar Maurer, acting as medical associate for Olayinka Chavis MD. <Kumar Maurer - Last Filed: 08/20/17 00:30> <Olayinka Chavis - Last Filed: 08/20/17 01:35> Diagnosis at time of Disposition: Chest pain
[2017-08-20] MEDS ORDERED: ASPIRIN 325 MG TABLET PO ONE (00:11)
[2017-08-20] MEDS ORDERED: ASPIRIN 325 MG TABLET ONE (00:15)
[2017-08-20] MEDS ORDERED: ACETAMINOPHEN 1000 MG/100 ML VIAL (NON FORMULARY) IVPB ONE (00:26)
[2017-08-20] MEDS ORDERED: ACETAMINOPHEN INJECTION 100 ML IVPB ONE (00:32)
[2017-08-20 00:33] LABS: BASO % 0.4 % (0-2.0); HEMATOCRIT 40.9 % (32.4-45.2); HEMOGLOBIN 13.5 GM/dL (10.7-15.3); LYMPH % 6.5 % (8-40); MCH 30.8 pg (25.7-33.7); MCHC 33.1 g/dl (32.0-36.0); MEAN PLT VOLUME 9.8 fl (7.5-11.1); MONO % 7.7 % (3.8-10.2); NEUT % 85.4 % (42.8-82.8); PLATELET COUNT 290 K/MM3 (134-434); RDW 14.3 % (11.6-15.6); WHITE BLOOD COUNT 15.5 K/mm3 (4.0-10.0)
[2017-08-20 01:09] LABS: URINE APPEARANCE SLCLOUDY; URINE BILIRUBIN NEGATIVE (NEGATIVE); URINE BLOOD 1+ (NEGATIVE); URINE COLOR YELLOW; URINE GLUCOSE (UA) 1+ (NEGATIVE); URINE KETONE NEGATIVE (NEGATIVE); URINE LEUK ESTERASE 2+ (NEGATIVE); URINE NITRITE NEGATIVE (NEGATIVE); URINE PROTEIN NEGATIVE (NEGATIVE); URINE UROBILINOGEN NEGATIVE mg/dL (0.2-1.0)
[2017-08-20 01:11] LABS: EPI CELLS RARE /HPF (FEW); URINE HYALINE CAST 1 /lpf; URINE MUCUS RARE
[2017-08-20 01:18] LABS: ALBUMIN 3.8 g/dl (3.4-5.0); ANION GAP 10 (8-16); BLOOD UREA NITROGEN 24 mg/dL (7-18); CALCIUM 8.9 mg/dL (8.5-10.1); CHLORIDE 108 mmol/L (98-107); CO2 25 mmol/L (21-32); CREATININE 1.3 mg/dL (0.55-1.02); GLUCOSE,RANDOM 143 mg/dL (74-106); MAGNESIUM 2.2 mg/dL (1.8-2.4); POTASSIUM 3.8 mmol/L (3.5-5.1); SGOT/AST 15 U/L (15-37); SGPT/ALT 25 U/L (12-78); SODIUM 143 mmol/L (136-145)
[2017-08-20 01:22] LABS: ALK PHOS 90 U/L (45-117); BILIRUBIN,TOTAL 0.4 mg/dL (0.2-1.0); TOT PROT 7.9 g/dl (6.4-8.2)
[2017-08-20] MEDS ORDERED: SODIUM CHLORIDE 0.9% 500 ML INFUS.BAG IV ONE (01:50)
[2017-08-20] MEDS ORDERED: NITROFURANTOIN MACROCRYSTAL 50 MG CAPSULE (FP) PO SCH (02:00)
[2017-08-20] MEDS ORDERED: NITROFURANTOIN MACROCRYSTAL 50 MG CAPSULE (FP) ONE (02:11)
--- NOTE | 2017-08-20 03:55 | PDOC ---
*Physical Exam - Vital Signs Last Vital Signs Temp Pulse Resp BP Pulse Ox 98.1 F 101 H 20 158/87 98 08/19/17 23:41 08/19/17 23:41 08/19/17 23:41 08/19/17 23:41 08/19/17 23:41 - Physical Exam Comments: 08/20/17 03:54 I received patient on signout and she will be admitted to the hospitalist, as they cover Dr. Sen at night. ED Treatment Course - LABORATORY CBC & Chemistry Diagram: 08/20/17 00:18 08/20/17 00:18 - ADDITIONAL ORDERS Additional order review: Laboratory Results 08/20/17 08/20/17 08/20/17 00:54 00:18 00:18 D-Dimer 279 H Sodium 143 Potassium 3.8 Chloride 108 H Carbon Dioxide 25 Anion Gap 10 BUN 24 H D Creatinine 1.3 H D Creat Clearance w eGFR 42.37 Random Glucose 143 H D Calcium 8.9 Magnesium 2.2 Total Bilirubin 0.4 D AST 15 D ALT 25 Alkaline Phosphatase 90 Troponin I < 0.02 B-Natriuretic Peptide Total Protein 7.9 Albumin 3.8 Urine Color Yellow Urine Appearance Slcloudy Urine pH 5.0 Ur Specific [place] 1.025 Urine Protein Negative Urine Glucose (UA) 1+ H Urine Ketones Negative Urine Blood 1+ H Urine Nitrite Negative Urine Bilirubin Negative Urine Urobilinogen Negative Ur Leukocyte Esterase 2+ H Urine WBC (Auto) 142 Urine RBC (Auto) 8 Ur Epithelial Cells Rare Hyaline Casts 1 Urine Mucus Rare 08/20/17 00:18 D-Dimer Sodium Potassium Chloride Carbon Dioxide Anion Gap BUN Creatinine Creat Clearance w eGFR Random Glucose Calcium Magnesium Total Bilirubin AST ALT Alkaline Phosphatase Troponin I B-Natriuretic Peptide 126.60 H Total Protein Albumin Urine Color Urine Appearance Urine pH Ur Specific [place] Urine Protein Urine Glucose (UA) Urine Ketones Urine Blood Urine Nitrite Urine Bilirubin Urine Urobilinogen Ur Leukocyte Esterase Urine WBC (Auto) Urine RBC (Auto) Ur Epithelial Cells Hyaline Casts Urine Mucus 08/20/17 00:18 RBC 4.40 MCV 93.0 MCHC 33.1 RDW 14.3 MPV 9.8 Neutrophils % 85.4 H D Lymphocytes % 6.5 L D Monocytes % 7.7 Eosinophils % 0.0 D Basophils % 0.4 - Medications Given in the ED: ED Medications Discontinued Medications Generic Name Dose Route Start Last Admin Trade Name Elia PRN Reason Stop Dose Admin Acetaminophen 1,000 mg 08/20/17 00:26 08/20/17 00:38 Ofirmev Injection - IVPB 08/20/17 00:27 1,000 mg ONCE ONE Administration Aspirin 325 mg 08/20/17 00:11 08/20/17 00:18 Asa - PO 08/20/17 00:12 325 mg ONCE ONE Administration Sodium Chloride 500 ml 08/20/17 01:50 08/20/17 02:18 Normal Saline - IV 08/20/17 01:51 500 ml ONCE ONE Administration *DC/Admit/Observation/Transfer Diagnosis at time of Disposition: Chest pain, HTN (hypertension) - Discharge Dispostion Condition at time of disposition: Guarded Admit: Yes - Referrals - Patient Instructions - Post Discharge Activity
--- NOTE | 2017-08-20 04:09 | HP ---
Admitting History and Physical - Primary Care Physician PCP: Joyce Sen - Admission Chief Complaint: chest pain, SOB History of Present Illness: This is a 57 y/o woman with a past medical history of HTN, Carcinoid Syndrome, Gastroparesis, GERD. Who presents to the ED with L-sided chest pain and SOB x 2 days. Patient describes the pain as a "ton of bricks sitting on her chest", radiating to her neck, back and L- arm. Patient reports the pain started at rest , while sitting down watching TV. She also reports having palpitations. Patient reports that at home her blood pressure and heart rate were; 198/110, 108. She reports taking her Nifedipine before coming to the ER. Patient reports having bilateral calf pain and muscle cramping in her legs for one month. 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 Patient denies recent travel. Patient denies fever, chills, cough, AP, N/V/D, dysuria. History Source: Patient Limitations to Obtaining History: No Limitations - Past Medical History DIGITAL STRATEGY MANAGER: Yes: Migraine, Syncope. No: CVA, Dementia, Parkinson's, Seizure Cardiovascular: Yes: HTN Pulmonary: Yes: Previously Intubated. No: Asthma, Bronchitis Gastrointestinal: Yes: Constipation, GERD, Other (carcinoid syndrome. two abdominal carcinoids remover aproximately 8-9 years ago. No symptoms since tumors removed) Hepatobiliary: Yes: Other (autoimmune hepatitis-has seen Dr Jes Mejia at [facility] (director of hepatology) and was schedulede for a CT at that institution today. ) Musculoskeletal: Yes: Chronic low back pain Endocrine: Yes: Other (h/o carcinoid) - Past Surgical History Past Surgical History: Yes: Appendectomy, Oopherectomy, Cholecystectomy - Smoking History Smoking history: Never smoked Have you smoked in the past 12 months: No Aproximately how many cigarettes per day: 0 - Alcohol/Substance Use Hx Alcohol Use: No History of Substance Use: reports: None - Social History Usual Living Arrangement: Yes: With Spouse ADL: Independent Occupation: Registered Professional Nurse History of Recent Travel: No Home Medications - Allergies Allergies/Adverse Reactions: Allergies Allergy/AdvReac Type Severity Reaction Status Date / Time oxycodone HCl [From Percocet] Allergy Severe Difficulty Verified 08/19/17 23:48 Breathing oxycodone Allergy Intermediate Itching Verified 08/19/17 23:48 hydromorphone HCl Allergy Verified 08/19/17 23:48 [From Dilaudid] morphine AdvReac Difficulty Verified 08/19/17 23:48 Breathing - Home Medications Home Medications: Ambulatory Orders Nifedipine [Procardia Xl] 60 mg PO DAILY 12/09/15 Alprazolam [Xanax Xr] 1 mg PO PRN 12/19/16 Ibuprofen 800 mg PO TID #30 tablet 12/19/16 Methocarbamol [Robaxin -] 750 mg PO Q8H #30 tablet 12/19/16 Tramadol HCl [Ultram -] 50 mg PO Q6H #20 tablet MDD 4 12/19/16 Albuterol Sulfate Inhaler - [Ventolin HFA Inhaler -] 1 - 2 inh PO Q4H #1 inhaler 02/21/17 Amoxicillin - [Amoxicillin 875mg Tablet -] 875 mg PO BID #14 tab 02/27/17 Family Disease History - Family Disease History Family Disease History: Heart Disease: Grandparent (Heart attack), Mother ([place], PE), Other: Mother Review of Systems - Review of Systems Constitutional: reports: No Symptoms Eyes: reports: No Symptoms HENT: reports: No Symptoms Neck: reports: No Symptoms Cardiovascular: reports: Chest Pain, Palpitations, Shortness of Breath Respiratory: reports: SOB Gastrointestinal: reports: Constipation Genitourinary: reports: No Symptoms Breasts: reports: No Symptoms Reported Musculoskeletal: reports: No Symptoms Integumentary: reports: No Symptoms Neurological: reports: No Symptoms Endocrine: reports: No Symptoms Hematology/Lymphatic: reports: No Symptoms Psychiatric: reports: No Symptoms Physical Examination Vital Signs: Vital Signs Temperature 98.1 F 08/19/17 23:41 Pulse Rate 101 H 08/19/17 23:41 Respiratory Rate 20 08/19/17 23:41 Blood Pressure 158/87 08/19/17 23:41 O2 Sat by Pulse Oximetry (%) 98 08/19/17 23:41 Constitutional: Yes: Well Nourished, No Distress Eyes: Yes: WNL, Conjunctiva Clear, EOM Intact, PERRL HENT: Yes: WNL, Atraumatic, Normocephalic Neck: Yes: WNL, Supple, Trachea Midline, Tenderness Cardiovascular: Yes: Regular Rate and Rhythm, S1, S2 Respiratory: Yes: WNL, Regular, CTA Bilaterally Gastrointestinal: Yes: WNL, Normal Bowel Sounds, Soft. No: Tenderness, Tenderness, Epigastrium ...Rectal Exam: Yes: Deferred Renal/: Yes: WNL Breast(s): Yes: WNL Musculoskeletal: Yes: WNL Extremities: Yes: Calf Tenderness (R>L) Edema: No Peripheral Pulses WNL: Yes Peripheral Pulses: Left Radial: 2+, Right Radial: 2+, Left Doralis Pedis: 2+, Right Dorsalis Pedis: 2+ Integumentary: Yes: WNL Neurological: Yes: WNL, Alert, Oriented ...Motor Strength: WNL Psychiatric: Yes: WNL, Alert, Oriented Labs: CBC, BMP 08/20/17 00:18 08/20/17 00:18 Laboratory Results - last 24 hr 08/20/17 08/20/17 08/20/17 00:18 00:18 00:18 WBC 15.5 H D RBC 4.40 Hgb 13.5 Hct 40.9 MCV 93.0 MCH 30.8 MCHC 33.1 RDW 14.3 Plt Count 290 MPV 9.8 Neutrophils % 85.4 H D Lymphocytes % 6.5 L D Monocytes % 7.7 Eosinophils % 0.0 D Basophils % 0.4 D-Dimer 279 H Sodium Potassium Chloride Carbon Dioxide Anion Gap BUN Creatinine Creat Clearance w eGFR Random Glucose Calcium Magnesium Total Bilirubin AST ALT Alkaline Phosphatase Troponin I B-Natriuretic Peptide 126.60 H Total Protein Albumin Urine Color Urine Appearance Urine pH Ur Specific [place] Urine Protein Urine Glucose (UA) Urine Ketones Urine Blood Urine Nitrite Urine Bilirubin Urine Urobilinogen Ur Leukocyte Esterase Urine WBC (Auto) Urine RBC (Auto) Ur Epithelial Cells Hyaline Casts Urine Mucus 08/20/17 08/20/17 00:18 00:54 WBC RBC Hgb Hct MCV MCH MCHC RDW Plt Count MPV Neutrophils % Lymphocytes % Monocytes % Eosinophils % Basophils % D-Dimer Sodium 143 Potassium 3.8 Chloride 108 H Carbon Dioxide 25 Anion Gap 10 BUN 24 H D Creatinine 1.3 H D Creat Clearance w eGFR 42.37 Random Glucose 143 H D Calcium 8.9 Magnesium 2.2 Total Bilirubin 0.4 D AST 15 D ALT 25 Alkaline Phosphatase 90 Troponin I < 0.02 B-Natriuretic Peptide Total Protein 7.9 Albumin 3.8 Urine Color Yellow Urine Appearance Slcloudy Urine pH 5.0 Ur Specific [place] 1.025 Urine Protein Negative Urine Glucose (UA) 1+ H Urine Ketones Negative Urine Blood 1+ H Urine Nitrite Negative Urine Bilirubin Negative Urine Urobilinogen Negative Ur Leukocyte Esterase 2+ H Urine WBC (Auto) 142 Urine RBC (Auto) 8 Ur Epithelial Cells Rare Hyaline Casts 1 Urine Mucus Rare Intake & Output 08/17/17 08/18/17 08/19/17 08/20/17 23:59 23:59 23:59 23:59 Weight 93.44 kg Imaging - Results Chest X-ray: Image Reviewed Cat Scan: Pending (CTA) EKG: Image Reviewed (NSR, no ST or TWI) Problem List - Problems (1) Chest pain Assessment/Plan: - r/o ACS vs PE vs DVT - HEART SCORE 4 - Wells Score DVT - 1 - Wells Score PE- 1.5 - Serial Enzymes- neg x1, will trend x2 - EKG- reviewed NSR no ST or TWI - Chest Xray-pending - Appreciate Cardiology Consult - Asa given, continue - Echo on Monday - CTA r/o PE- pending - Duplex b/l legs r/o DVT- pending (secondary to calf pain R>L) - Continue diagnostic cardiac sonographer - Ntg SL prn Code(s): R07.9 - CHEST PAIN, UNSPECIFIED (2) HTN (hypertension) Assessment/Plan: - Monitor BP - Continue Nifedipine - Monitor renal function Code(s): I10 - ESSENTIAL (PRIMARY) HYPERTENSION (3) Asymptomatic bacteriuria Assessment/Plan: - Patient denies dysuria - Nitrofurantin given in ED, will not treat at this time, will continue to monitor. - Urine Culture-pending Code(s): R82.71 - BACTERIURIA (4) GERD (gastroesophageal reflux disease) Assessment/Plan: - Continue home med Code(s): K21.9 - GASTRO-ESOPHAGEAL REFLUX DISEASE WITHOUT ESOPHAGITIS (5) Carcinoid syndrome Assessment/Plan: - in remission Code(s): E34.0 - CARCINOID SYNDROME (6) Gastroparesis Assessment/Plan: - No active episodes Code(s): K31.84 - GASTROPARESIS (7) DVT prophylaxis Assessment/Plan: - OOB - Heparin SQ Code(s): IJX8256 - Assessment/Plan This is a 57 y/o woman with a PMHx of: HTN, Carcinoid Syndrome, GERD. Placed in Tele Observation for Chest Pain r/o ACS Plan FEN - PO fluids - Replete lytes prn - Low Na Diet Code Status: Full Code Dispo: Obs Visit type - Emergency Visit Emergency Visit: Yes ED Registration Date: 08/19/17 Care time: The patient presented to the Emergency Department on the above date and was hospitalized for further evaluation of their emergent condition. - New Patient This patient is new to me today: Yes Date on this admission: 08/20/17 - Critical Care Critical Care patient: No
[2017-08-20] MEDS ORDERED: SODIUM CHLORIDE 1,000 ML IV SCH ×2 (05:15→12:04)
[2017-08-20 06:20] LABS: ANION GAP 5 (8-16); BLOOD UREA NITROGEN 25 mg/dL (7-18); CALCIUM 8.2 mg/dL (8.5-10.1); CHLORIDE 111 mmol/L (98-107); CHOLESTEROL 189 mg/dL (50-200); CO2 26 mmol/L (21-32); CREATININE 1.1 mg/dL (0.55-1.02); GLUCOSE,RANDOM 110 mg/dL (74-106); HDL CHOLESTEROL 60 mg/dL (40-60); LDL CHOLESTEROL (ONLY SJRH) 115 mg/dL (5-100); POTASSIUM 4.1 mmol/L (3.5-5.1); SODIUM 142 mmol/L (136-145); TRIGLYCERIDES 45 mg/dL (35-160)
[2017-08-20 07:54] VITALS: BMI 35.9
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
[2017-08-20] MEDS: NIFEdipine E.R 60 MG TABLET (UD) PO SCH (10:49)
[2017-08-20] MEDS: NITROGLYCERIN SUBLINGUAL 1/150 0.4 MG TAB SL PRN ×2 (11:15→16:45)
--- NOTE | 2017-08-20 11:42 | PN ---
Progress Note (short form) - Note Progress Note: PULMONARY CONSULTATION DICTATED 08/20/17 IMP CHEST PAIN R/O CARDIAC,?MUSCULOSKELETAL,DOUBT PE,O2 SAT 98%,- TACHYCARDIA, NL DUPLEX DYSPNEA IMPROVED PROMINENT MEDIASTINUM H/O CARCINOID SYNDROME S/P RESECTION HTN VIANEY R/O OSAS PLAN CHEST X-RAY PA + LATERAL CHEST CTA AORTA WHEN RENAL FUNCTION IMPROVES CARDIAC W/U ECHO ANALGESICS MONITOR LYTES SLEEP SCREEN DR TERESA , Problem List - Problems (1) Carcinoid syndrome Code(s): E34.0 - CARCINOID SYNDROME (2) Chest pain Code(s): R07.9 - CHEST PAIN, UNSPECIFIED (3) GERD (gastroesophageal reflux disease) Code(s): K21.9 - GASTRO-ESOPHAGEAL REFLUX DISEASE WITHOUT ESOPHAGITIS (4) HTN (hypertension) Code(s): I10 - ESSENTIAL (PRIMARY) HYPERTENSION
--- NOTE | 2017-08-20 12:22 | PN ---
Progress Note (short form) - Note Progress Note: pt seen/ examined chart reviewed discussed with Dr. Arora also Agree that pe suspicion is low. continue present care increase hydration x 24 - 48 hours monitor lytes dvt prophylaxis will follow A/p CHEST PAIN R/O CARDIAC, ,DOUBT PE, H/O CARCINOID SYNDROME S/P RESECTION Acute renal insufficiency
[2017-08-20] MEDS: HEPARIN NA (PORCINE) 5,000 UNITS/ML 1ML VIAL SQ SCH ×2 (12:26→21:36)
--- NOTE | 2017-08-20 12:58 | CONS ---
DATE OF CONSULTATION: 08/20/2017 REFERRING PHYSICIAN: Demetria Vora MD The patient is a 57-year-old female, past medical history of chronic hypertension, carcinoid syndrome, status post resection of the bowel, and salpingo-oophorectomy, also cervical disk disease, who is a nonsmoker, admitted to [facility] with complaint of 3-day history of left-sided substernal chest pain, radiation to the shoulder and neck. She describes the pain as pressure-like in character, non-pleuritic. She also complained of some increasing shortness of breath. Denies any PND or orthopnea. She also noted some lower extremity edema. She underwent a duplex, which was negative. Of note is a D- dimer was mildly elevated to 279. The patient was evaluated by Dr. Hudson for cardiology consultation, who felt that the patient should undergo a stress test, possible sestamibi. The patient, as stated, was a nonsmoker, denies any history. She is currently an RN by profession. There is no history of recent travel. She ambulates every day. Denies excessive daytime sleep. Denies any prolonged bedrest and/or recent surgery. There is no history of DVT or PE in the past. There is no family history of DVT or PE in the past. Past medical history, again, includes hypertension, carcinoid syndrome with a resection of bowel, and history of salpingo-oophorectomy secondary to recurrence of disease. REVIEW OF SYSTEMS: No orthopnea, no PND. Positive chest pressure. No nausea, no vomiting, no diaphoresis. Positive shortness of breath. No fever, no chills, no hemoptysis, no abdominal pain. Current medications include Procardia, normal saline, Nitrostat, and aspirin. PHYSICAL EXAMINATION: General: The patient is a well-developed, well-nourished female, awake, alert, currently in no acute distress. Vital Signs: She is currently afebrile, heart rate is 65, O2 saturation is 98% on room air, 216 pounds, her respiratory rate is 20. HEENT: Normocephalic, atraumatic. Neck: Supple. Heart: Regular, S1, S2. Chest: Clear. Abdomen: Soft. Bowel sounds positive. Extremities: No cyanosis, edema. LABORATORY DATA: WBC 15.5, hemoglobin 13.5, hematocrit 40.9, platelet count of 290,000. D-dimer is 279. Venous blood gas 7.44, pCO2 of 39, pO2 51. Electrolytes: BUN 15, creatinine 1.3, hemoglobin A1c is 6.1. BNP is 126. Duplex, lower extremity: No evidence of DVT in both lower extremities. Chest x-ray: Poor inspiratory effort, prominent mediastinum, mild congestive changes. IMPRESSION: 1. Chest pain, rule out cardiac etiology. Patient at increased risk, postmenopausal, hypertension, obesity. 2. Possible musculoskeletal secondary to cervical disk disease. 3. Pulmonary embolism less likely. Duplex negative, D-dimer only mildly elevated ,O2 saturation of 98% on room air. 4. History of carcinoid syndrome status post resection. 5. R/O OSAS PLAN: Would get a CT scan of the chest/aorta with contrast, when the BUN/ creatinine normalize. Agree with cardiac workup, echocardiogram, sestamibi, analgesics p.r.n. Sleep screen. SHELLIE TERESA M.D. TOM/[id number] MTDD
[2017-08-20 20:38] LABS: ANION GAP 9 (8-16); BLOOD UREA NITROGEN 18 mg/dL (7-18); CALCIUM 8.8 mg/dL (8.5-10.1); CHLORIDE 108 mmol/L (98-107); CO2 27 mmol/L (21-32); CREATININE 0.8 mg/dL (0.55-1.02); GLUCOSE,RANDOM 100 mg/dL (74-106); POTASSIUM 3.9 mmol/L (3.5-5.1); SODIUM 144 mmol/L (136-145)
[2017-08-21 07:25] LABS: BASO % 0.1 % (0-2.0); HEMOGLOBIN 13.1 GM/dL (10.7-15.3); LYMPH % 36.5 % (8-40); MCH 30.4 pg (25.7-33.7); MCHC 32.8 g/dl (32.0-36.0); MEAN CELL VOLUME 92.7 fl (80-96); MEAN PLT VOLUME 9.7 fl (7.5-11.1); NEUT % 54.4 % (42.8-82.8); PLATELET COUNT 260 K/MM3 (134-434); RBC 4.32 M/mm3 (3.60-5.2); RDW 14.8 % (11.6-15.6)
[2017-08-21 08:04] LABS: ALBUMIN 3.4 g/dl (3.4-5.0); ANION GAP 9 (8-16); BLOOD UREA NITROGEN 14 mg/dL (7-18); CALCIUM 8.4 mg/dL (8.5-10.1); CHLORIDE 105 mmol/L (98-107); CO2 27 mmol/L (21-32); CREATININE 0.7 mg/dL (0.55-1.02); GLUCOSE,RANDOM 76 mg/dL (74-106); POTASSIUM 3.9 mmol/L (3.5-5.1); SGOT/AST 15 U/L (15-37); SGPT/ALT 23 U/L (12-78); SODIUM 141 mmol/L (136-145)
[2017-08-21 08:06] LABS: ALK PHOS 82 U/L (45-117); BILIRUBIN,TOTAL 0.7 mg/dL (0.2-1.0); TOT PROT 7.3 g/dl (6.4-8.2)
--- NOTE | 2017-08-21 08:58 | PN ---
Progress Note, Physician History of Present Illness: feels better still having pain in chest mi ruled out cta done last night -ve echo done just now for stress test today no other issues overall looks better afebrile denies urinary burning - Current Medication List Current Medications: Active Medications Aspirin (Asa -) 81 mg PO DAILY [facility] Heparin Sodium (Porcine) (Heparin -) 5,000 unit SQ BID [facility] Last Admin: 08/20/17 21:36 Dose: 5,000 unit Sodium Chloride (Normal Saline -) 1,000 mls @ 100 mls/hr IV ASDIR [facility] Last Admin: 08/20/17 12:26 Dose: 100 mls/hr Nifedipine (Procardia Xl -) 60 mg PO DAILY [facility] Last Admin: 08/20/17 10:49 Dose: 60 mg Nitroglycerin (Nitrostat -) 0.4 mg SL Q5M PRN PRN Reason: FOR CHEST PAIN Last Admin: 08/20/17 16:45 Dose: 0.4 mg - Objective Vital Signs: Vital Signs Temperature 98.3 F 08/21/17 06:00 Pulse Rate 62 08/21/17 06:00 Respiratory Rate 18 08/21/17 06:00 Blood Pressure 126/82 08/21/17 06:00 O2 Sat by Pulse Oximetry (%) 94 L 08/20/17 21:00 Constitutional: Yes: No Distress, Calm Eyes: Yes: Conjunctiva Clear Neck: Yes: Supple Cardiovascular: Yes: Regular Rate and Rhythm Respiratory: Yes: CTA Bilaterally Gastrointestinal: Yes: Normal Bowel Sounds, Soft Edema: No Neurological: Yes: Alert Psychiatric: Yes: Alert Labs: CBC, BMP 08/21/17 07:00 08/21/17 07:00 - ....Imaging Other: Report Reviewed (cta) Problem List - Problems (1) Chest pain Code(s): R07.9 - CHEST PAIN, UNSPECIFIED (2) HTN (hypertension) Code(s): I10 - ESSENTIAL (PRIMARY) HYPERTENSION Assessment/Plan stable echo stress test cr normalized continue present care further recommendations after stress test discussed with Dr. Rodriguez yesterday and today. discussed with nursing staff also. will follow monitor on tele for now.
[2017-08-21] MEDS ORDERED: ASPIRIN 81 MG CHEWABLE TABLETS PO SCH (10:00)
[2017-08-21] MEDS: HEPARIN NA (PORCINE) 5,000 UNITS/ML 1ML VIAL SQ SCH (10:20)
--- NOTE | 2017-08-21 12:01 | PN ---
Progress Note, Physician History of Present Illness: pulmonary alert,feeling better,less dyspneic,-cp. stress test- - Current Medication List Current Medications: Active Medications Aspirin (Asa -) 81 mg PO DAILY [facility] Heparin Sodium (Porcine) (Heparin -) 5,000 unit SQ BID [facility] Last Admin: 08/20/17 21:36 Dose: 5,000 unit Sodium Chloride (Normal Saline -) 1,000 mls @ 100 mls/hr IV ASDIR [facility] Last Admin: 08/20/17 12:26 Dose: 100 mls/hr Nifedipine (Procardia Xl -) 60 mg PO DAILY [facility] Last Admin: 08/20/17 10:49 Dose: 60 mg Nitroglycerin (Nitrostat -) 0.4 mg SL Q5M PRN PRN Reason: FOR CHEST PAIN Last Admin: 08/20/17 16:45 Dose: 0.4 mg - Objective Vital Signs: Vital Signs Temperature 98.3 F 08/21/17 06:00 Pulse Rate 62 08/21/17 06:00 Respiratory Rate 18 08/21/17 06:00 Blood Pressure 126/82 08/21/17 06:00 O2 Sat by Pulse Oximetry (%) 94 L 08/20/17 21:00 Constitutional: Yes: Well Nourished, Calm Eyes: Yes: WNL HENT: Yes: WNL Neck: Yes: WNL Cardiovascular: Yes: Regular Rate and Rhythm, S1, S2 Respiratory: Yes: CTA Bilaterally Gastrointestinal: Yes: Normal Bowel Sounds, Soft Extremities: Yes: WNL Edema: No Labs: CBC, BMP 08/21/17 07:00 08/21/17 07:00 - ....Imaging Cat Scan: Report Reviewed, Image Reviewed Problem List - Problems (1) Carcinoid syndrome Code(s): E34.0 - CARCINOID SYNDROME (2) Chest pain Code(s): R07.9 - CHEST PAIN, UNSPECIFIED (3) GERD (gastroesophageal reflux disease) Code(s): K21.9 - GASTRO-ESOPHAGEAL REFLUX DISEASE WITHOUT ESOPHAGITIS (4) HTN (hypertension) Code(s): I10 - ESSENTIAL (PRIMARY) HYPERTENSION Assessment/Plan IMP CHEST PAIN R/O CARDIAC,?MUSCULOSKELETAL,DOUBT PE,O2 SAT 98%,- TACHYCARDIA, NL DUPLEX DYSPNEA IMPROVED PROMINENT MEDIASTINUM -CTA H/O CARCINOID SYNDROME S/P RESECTION HTN VIANEY R/O OSAS SLEEP SCREEN NORMAL,AHI 2.5 PLAN ANALGESICS MONITOR LYTES PFTS OUTPATIENT DR TERESA , Problem List - Problems (1) Carcinoid syndrome Code(s): E34.0 - CARCINOID SYNDROME (2) Chest pain Code(s): R07.9 - CHEST PAIN, UNSPECIFIED (3) GERD (gastroesophageal reflux disease) Code(s): K21.9 - GASTRO-ESOPHAGEAL REFLUX DISEASE WITHOUT ESOPHAGITIS (4) HTN (hypertension) Code(s): I10 - ESSENTIAL (PRIMARY) HYPERTENSION
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
--- NOTE | 2017-08-21 12:34 | EKG ---
Test Reason : Blood Pressure : / mmHG Vent. Rate : 118 BPM Atrial Rate : 118 BPM P-R Int : 130 ms QRS Dur : 072 ms QT Int : 348 ms P-R-T Axes : 064 -04 040 degrees QTc Int : 487 ms SINUS TACHYCARDIA WHEN COMPARED WITH ECG OF 20-AUG-2017 17:26, PREMATURE VENTRICULAR COMPLEXES ARE NO LONGER PRESENT VENT. RATE HAS INCREASED BY 43 BPM Confirmed by JULIO BURNHAM MD ([id number]) on 08/21/2017 12:34:20 PM Referred By: Confirmed By:JULIO BURNHAM MD
--- NOTE | 2017-08-21 12:36 | EKG ---
Test Reason : Blood Pressure : / mmHG Vent. Rate : 075 BPM Atrial Rate : 075 BPM P-R Int : 142 ms QRS Dur : 080 ms QT Int : 412 ms P-R-T Axes : 030 007 030 degrees QTc Int : 460 ms SINUS RHYTHM WITH OCCASIONAL PREMATURE VENTRICULAR COMPLEXES NONSPECIFIC T WAVE ABNORMALITY ABNORMAL ECG WHEN COMPARED WITH ECG OF 19-AUG-2017 23:25, PREMATURE VENTRICULAR COMPLEXES ARE NOW PRESENT T WAVE VARIATION VENT. RATE HAS DECREASED Confirmed by TEJ HORNE, JULIO ([id number]) on 08/21/2017 12:36:11 PM Referred By: Confirmed By:JULIO BURNHAM MD
--- NOTE | 2017-08-21 12:39 | EKG ---
Test Reason : Blood Pressure : / mmHG Vent. Rate : 103 BPM Atrial Rate : 103 BPM P-R Int : 142 ms QRS Dur : 086 ms QT Int : 358 ms P-R-T Axes : 034 012 029 degrees QTc Int : 468 ms SINUS TACHYCARDIA OTHERWISE NORMAL ECG WHEN COMPARED WITH ECG OF 21-FEB-2017 13:00, NO SIGNIFICANT CHANGE WAS FOUND Confirmed by JULIO BURNHAM MD ([id number]) on 08/21/2017 12:39:48 PM Referred By: Confirmed By:JULIO BURNHAM MD
[2017-08-21] MEDS: NIFEdipine E.R 60 MG TABLET (UD) PO SCH (14:20)
[2017-08-21 14:25] VITALS: BP 141/75; PULSE 81; TEMP 98.9
--- NOTE | 2017-08-21 15:59 | DS ---
Physical Examination Vital Signs: Vital Signs Temperature 98.9 F 08/21/17 14:24 Pulse Rate 81 08/21/17 14:24 Respiratory Rate 18 08/21/17 14:24 Blood Pressure 141/75 08/21/17 14:24 O2 Sat by Pulse Oximetry (%) 96 08/21/17 09:00 Findings/Remarks: see today progress note Labs: CBC, BMP 08/21/17 07:00 08/21/17 07:00 Discharge Summary Reason For Visit: CHEST PAIN, HYPERTENSION Current Active Problems Asymptomatic bacteriuria (Acute) Carcinoid syndrome (Acute) Chest pain (Acute) DVT prophylaxis (Acute) GERD (gastroesophageal reflux disease) (Acute) Gastroparesis (Acute) HTN (hypertension) (Acute) Hospital Course: This is a 57 y/o woman with a past medical history of HTN, Carcinoid Syndrome, Gastroparesis, GERD. Who presents to the ED with L-sided chest pain and SOB x 2 days. patient admitted to telemetry Cardiology and pulmonary followed There was concern of PE--- I did not suspect CTA was negative Echocardiogram also done--- okay Stress test was also done today--negative Patient feels okay--except tired Patient also had slight elevated white count and increased WBC in urine Urine culture also showing gram-negative bacilli In light of above--patient started on antibiotics Discussed with patient We will discharge patient today Patient to follow office in 2-3 days Medications reconciled Discussed with patient and nursing staff Condition: Guarded - Instructions - Home Medications Comprehensive Discharge Medication List: Ambulatory Orders Nifedipine [Procardia Xl] 60 mg PO DAILY 12/09/15 Alprazolam [Xanax Xr] 1 mg PO PRN 12/19/16 Ibuprofen 800 mg PO TID #30 tablet 12/19/16 Methocarbamol [Robaxin -] 750 mg PO Q8H #30 tablet 12/19/16 Tramadol HCl [Ultram -] 50 mg PO Q6H #20 tablet MDD 4 12/19/16 Albuterol Sulfate Inhaler - [Ventolin HFA Inhaler -] 1 - 2 inh PO Q4H #1 inhaler 02/21/17 Aspirin [ASA -] 81 mg PO DAILY tab.chew 08/21/17 Nitrofurantoin Macrocrystal [Macrodantin -] 100 mg PO Q6HPO #20 capsule
[2017-08-21] MEDS ORDERED: NITROFURANTOIN MACROCRYSTAL 50 MG CAPSULE (FP) PO SCH (16:30)
== END 2017-08-21 17:53 | disposition home or self-care (01) ==
LOC: JER 23:10 → JERBED 08-20 03:53 → J4W 08-20 06:25
PROVIDERS: ADMIT Internal Medicine; ATTEND Internal Medicine
PROC: 3E033GC Introduction of Other Therapeutic Substance into Peripheral Vein, Percutaneous Approach (ICD-10-PCS; principal; 2017-08-20)
PROC: 3E0337Z Introduction of Electrolytic and Water Balance Substance into Peripheral Vein, Percutaneous Approach (ICD-10-PCS; 2017-08-20)
DX: R07.9 Chest pain, unspecified (principal); I10 Essential (primary) hypertension; D64.9 Anemia, unspecified; R82.71 Bacteriuria; K21.9 Gastro-esophageal reflux disease without esophagitis; E34.0 Carcinoid syndrome; K31.84 Gastroparesis
CPT/HCPCS: 36415; 71045-TC; 71046-TC; 71275-TC; 78452-TC; 80048; 80053; 80061; 81003; 81015; 82550; 83036; 83721; 83735; 83880; 84484; 85025; 85379; 87040; 87086; 87186; 93005; 93010; 93017; 93306-TC; 93970-TC; 96374; 99285-25; A9502; G0378; J1644

== ENCOUNTER 2017-09-08 16:15 | Emergency (ER) | payer OTHER ==
[2017-09-08] MEDS ORDERED: ONDANSETRON *ODT* 4 MG TABLET SL ONE (16:42)
[2017-09-08] MEDS ORDERED: ACETAMINOPHEN 500 MG TABLET (FP) PO ONE (16:42)
--- NOTE | 2017-09-08 16:42 | PDOC ---
Rapid Medical Evaluation Time Seen by Provider: 09/08/17 16:39 Medical Evaluation: Allergies Allergy/AdvReac Type Severity Reaction Status Date / Time oxycodone HCl [From Percocet] Allergy Severe Difficulty Verified 08/19/17 23:48 Breathing oxycodone Allergy Intermediate Itching Verified 08/19/17 23:48 hydromorphone HCl Allergy Verified 08/19/17 23:48 [From Dilaudid] morphine AdvReac Difficulty Verified 08/19/17 23:48 Breathing 09/08/17 16:39 I have performed a brief in-person evaluation of this patient. 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 I have ordered the following: Tylenol 1000mg PO, zofran OTD The patient will proceed to the ED for further evaluation. 09/08/17 16:45 Discharge Disposition - Referrals Referrals: Joyce Sen MD [Primary Care Provider] - - Patient Instructions - Post Discharge Activity
[2017-09-08 16:45] VITALS: BP 140/88; PULSE 106; TEMP 99.5; BMI 35.9
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
[2017-09-08] MEDS ORDERED: IBUPROFEN 400 MG TABLET (FP) PO ONE ×2 (18:24→18:27)
[2017-09-08 18:48] LABS: URINE APPEARANCE SLCLOUDY; URINE BILIRUBIN NEGATIVE (NEGATIVE); URINE BLOOD NEGATIVE (NEGATIVE); URINE COLOR YELLOW; URINE GLUCOSE (UA) NEGATIVE (NEGATIVE); URINE KETONE TRACE (NEGATIVE); URINE LEUK ESTERASE NEGATIVE (NEGATIVE); URINE NITRITE NEGATIVE (NEGATIVE); URINE UROBILINOGEN NEGATIVE mg/dL (0.2-1.0)
[2017-09-08 18:54] LABS: URINE PROTEIN 1+ (NEGATIVE)
[2017-09-08 19:00] LABS: EPI CELLS RARE /HPF (FEW); URINE BACTERIA RARE /hpf (NONE SEEN); URINE MUCUS MANY
== END 2017-09-08 19:01 | disposition home or self-care (01) ==
LOC: JERFT 16:15
DX: B34.9 Viral infection, unspecified (principal)
CPT/HCPCS: 81003; 81015; 87804; 99281-25

== ENCOUNTER 2017-11-22 | Emergency (ER) | payer OTHER ==
[2017-11-22 01:00] VITALS: BP 149/84; PULSE 65; BMI 34.9
--- NOTE | 2017-11-22 03:24 | PDOC ---
History of Present Illness - General Chief Complaint: Pain Stated Complaint: ABDOMINAL PAIN Time Seen by Provider: 11/22/17 02:34 History Source: Patient Exam Limitations: No Limitations - History of Present Illness Initial Comments: CHIEF COMPLAINT: 57 y/o afebrile female with PMH HTN and asthma c/o abdominal pain for the past 8 hours. HISTORY OF PRESENT ILLNESS: The patient states after eating dinner, while watching tv she developed sharp abdominal pain in the middle of her abdomen that radiated up her anterior chest and out to both sides. She describes the pain as sharp and states her stomach now feels hard and bloated. She denies f/c , n/v, cough, hemoptysis, palpitations, back pain, hematuria, dysuria. She does admit she started taking vicodin for a recent knee surgery and isn't sure if that upset her stomach but she had the vicodin about 4 hours before the pain began. Vital signs on arrival are within normal limits. REVIEW OF SYSTEMS: GENERAL/CONSTITUTIONAL: No fever/chills. No weakness. No weight change. HEAD, EYES, EARS, NOSE AND THROAT: No change in vision. No ear pain or discharge. No sore throat. CARDIOVASCULAR: No chest pain or shortness of breath. RESPIRATORY: No cough, wheezing, or hemoptysis. GASTROINTESTINAL: +epigastric pain radiating up anterior chest and out to RUQ and LUQ. No nausea, vomiting, diarrhea. GENITOURINARY: No dysuria, frequency, or change in urination. MUSCULOSKELETAL: No joint or muscle swelling or pain. No neck or back pain. SKIN: No rash or easy bruising. NEUROLOGIC: No headache, vertigo, loss of consciousness, or loss of sensation. PHYSICAL EXAM: GENERAL: The patient is awake, alert, and fully oriented, in no acute distress. She is well appearing and pleasant. HEAD: Normal with no signs of trauma. ENT: Pupils equal, round and reactive to light, extraocular movements intact, sclera anicteric, conjunctiva clear. Neck supple. LUNGS: Clear to auscultation bilaterally. Normal excursion. No respiratory distress or use of accessory muscles. CV: RRR, S1/S2, no MRG. Cap refill < 2 sec. ABDOMEN: Soft, obese, distended with minimal TTP of epigastric region. Negative easley's sign. No mcburney's point TTP. No rebound or guarding. EXTREMITIES: Normal range of motion, no edema. NEUROLOGICAL: Normal speech, normal gait. CN II-XII grossly intact. PSYCH: Normal mood, normal affect. SKIN: Warm, dry, normal turgor, no rashes or lesions noted. Past History - Past Medical History Allergies/Adverse Reactions: Allergies Allergy/AdvReac Type Severity Reaction Status Date / Time oxycodone HCl [From Percocet] Allergy Severe Difficulty Verified 11/22/17 02:04 Breathing oxycodone Allergy Intermediate Itching Verified 11/22/17 02:04 hydromorphone HCl Allergy Verified 11/22/17 02:04 [From Dilaudid] morphine AdvReac Difficulty Verified 11/22/17 02:04 Breathing Home Medications: Ambulatory Orders Albuterol Sulfate Inhaler - [Ventolin Hfa Inhaler -] 1 - 2 inh PO Q4H 11/22/17 Alprazolam [Xanax Xr] 1 mg PO 11/22/17 Carvedilol [Coreg] 6.25 mg PO 11/22/17 Famotidine [Pepcid] 20 mg PO BID #14 tablet 11/22/17 Nifedipine [Procardia Xl] 60 mg PO 11/22/17 Anemia: Yes Asthma: No Cancer: Yes (carcenoid sydrome, remission) Cardiac Disorders: No CVA: No COPD: No CHF: No Dementia: No Diabetes: No GI Disorders: Yes (GERD) Disorders: No HTN: Yes Hypercholesterolemia: No Liver Disease: No Seizures: No Thyroid Disease: No - Surgical History Abdominal Surgery: Yes (salpingo oopherectomy) Appendectomy: Yes Cardiac Surgery: No Cholecystectomy: Yes Lung Surgery: No Neurologic Surgery: No Orthopedic Surgery: No - Immunization History Td Vaccination: Yes TDAP Vaccination: Yes Immunization Up to Date: Yes - Suicide/Smoking/Psychosocial Hx Smoking Status: No Smoking History: Never smoked Have you smoked in the past 12 months: No Number of Cigarettes Smoked Daily: 0 Information on smoking cessation initiated: No Hx Alcohol Use: No Drug/Substance Use Hx: No Substance Use Type: None Hx Substance Use Treatment: No *Physical Exam - Vital Signs Last Vital Signs Temp Pulse Resp BP Pulse Ox 65 18 149/84 100 11/22/17 00:46 11/22/17 00:46 11/22/17 00:46 11/22/17 00:46 Heart Score/ECG Review - ECG Intrepretation Comment:: Twelve-lead EKG was performed and reviewed by Dr. Merida. There is normal sinus rhythm with bradycardia. The axis is normal. The intervals are normal. There are no ST or T wave abnormalities. Impression: Abnormal twelve-lead EKG ED Treatment Course - LABORATORY CBC & Chemistry Diagram: 11/22/17 03:17 11/22/17 03:37 Medical Decision Making - Medical Decision Making A/P: 57 y/o female with epigastric pain that radiated up chest after eating dinner last night. Patient states she does feel much better now. Plan is as follows: 1. Labs 2. EKG patient is currently refusing pain medication. Patient would now like pain medication. ordered IV tylenol. Patient states she feels much better Labs unremarkable gave her all of her results. suggested 7 day course of pepcid. will give discharge instructions for reflux. instructed her to return to the ER with any worsening or concerning symptoms. The patient verbalizes understanding of all instructions, has no further questions and is awaiting discharge. *DC/Admit/Observation/Transfer Diagnosis at time of Disposition: Epigastric abdominal pain, GERD (gastroesophageal reflux disease), Bradycardia - Discharge Dispostion Disposition: HOME Condition at time of disposition: Improved - Referrals Referrals: Joyce Sen MD [Primary Care Provider] - Call tomorrow Beni Del Rio MD [Staff Physician] - 1 week - Patient Instructions Printed Discharge Instructions: DI for Epigastric Pain, GERD Diet, DI for Gastroesophageal Reflux Disease (GERD) Additional Instructions: Discharge Instructions: -Your heart rate was low in the ER; please follow up with Dr. Del Rio within 1 week -a prescription was sent to your pharmacy; please take as prescribed -Follow suggested diet -Return to the ER with any worsening or concerning symptoms - Post Discharge Activity
[2017-11-22 03:42] LABS: BASO % 0.5 % (0-2.0); EOS % 1.9 % (0-4.5); HEMATOCRIT 39.8 % (32.4-45.2); HEMOGLOBIN 13.4 GM/dL (10.7-15.3); LYMPH % 24.7 % (8-40); MCH 31.1 pg (25.7-33.7); MCHC 33.6 g/dl (32.0-36.0); MEAN CELL VOLUME 92.5 fl (80-96); MEAN PLT VOLUME 9.1 fl (7.5-11.1); MONO % 9.4 % (3.8-10.2); NEUT % 63.5 % (42.8-82.8); PLATELET COUNT 291 K/MM3 (134-434); RDW 14.1 % (11.6-15.6); WHITE BLOOD COUNT 7.1 K/mm3 (4.0-10.0)
--- NOTE | 2017-11-22 03:55 | PDOC ---
*Physical Exam - Vital Signs Last Vital Signs Temp Pulse Resp BP Pulse Ox 65 18 149/84 100 11/22/17 00:46 11/22/17 00:46 11/22/17 00:46 11/22/17 00:46 ED Treatment Course - LABORATORY CBC & Chemistry Diagram: 11/22/17 03:17 11/22/17 03:37 - ADDITIONAL ORDERS Additional order review: 11/22/17 03:17 RBC 4.30 MCV 92.5 MCHC 33.6 RDW 14.1 MPV 9.1 Neutrophils % 63.5 Lymphocytes % 24.7 D Monocytes % 9.4 Eosinophils % 1.9 D Basophils % 0.5 D Medical Decision Making - Medical Decision Making 11/22/17 03:54 agree with care from TERENCE Bello *DC/Admit/Observation/Transfer Diagnosis at time of Disposition: Epigastric abdominal pain, GERD (gastroesophageal reflux disease), Bradycardia - Discharge Dispostion Disposition: HOME Condition at time of disposition: Improved - Prescriptions Prescriptions: Famotidine [Pepcid] 20 mg PO BID #14 tablet - Referrals Referrals: Joyce Sen MD [Primary Care Provider] - Call tomorrow Beni Del Rio MD [Staff Physician] - 1 week - Patient Instructions Printed Discharge Instructions: DI for Gastroesophageal Reflux Disease (GERD), DI for Epigastric Pain, GERD Diet Additional Instructions: Discharge Instructions: -Your heart rate was low in the ER; please follow up with Dr. Del Rio within 1 week -a prescription was sent to your pharmacy; please take as prescribed -Follow suggested diet -Return to the ER with any worsening or concerning symptoms - Post Discharge Activity
[2017-11-22 04:06] LABS: ALBUMIN 3.6 g/dl (3.4-5.0); ANION GAP 8 (8-16); BILIRUBIN,TOTAL 0.3 mg/dL (0.2-1.0); BLOOD UREA NITROGEN 18 mg/dL (7-18); CALCIUM 8.7 mg/dL (8.5-10.1); CHLORIDE 110 mmol/L (98-107); CO2 25 mmol/L (21-32); CREATININE 0.8 mg/dL (0.55-1.02); GLUCOSE,RANDOM 106 mg/dL (74-106); LIPASE 165 U/L (73-393); POTASSIUM 3.7 mmol/L (3.5-5.1); SGOT/AST 74 U/L (15-37); SGPT/ALT 54 U/L (12-78); SODIUM 143 mmol/L (136-145); TOT PROT 7.9 g/dl (6.4-8.2)
[2017-11-22 04:09] LABS: ALK PHOS 102 U/L (45-117)
[2017-11-22] MEDS ORDERED: ACETAMINOPHEN INJECTION 100 ML IVPB ONE (04:39)
[2017-11-22] MEDS ORDERED: ACETAMINOPHEN 1000 MG/100 ML VIAL (NON FORMULARY) IVPB ONE (05:05)
--- NOTE | 2017-11-22 13:38 | EKG ---
Test Reason : Blood Pressure : / mmHG Vent. Rate : 051 BPM Atrial Rate : 051 BPM P-R Int : 158 ms QRS Dur : 086 ms QT Int : 446 ms P-R-T Axes : 023 010 039 degrees QTc Int : 411 ms SINUS BRADYCARDIA NONSPECIFIC T WAVE ABNORMALITY ABNORMAL ECG WHEN COMPARED WITH ECG OF 20-AUG-2017 17:50, VENT. RATE HAS DECREASED BY [address] NO LONGER DEPRESSED IN LATERAL LEADS NONSPECIFIC T WAVE ABNORMALITY NOW EVIDENT IN LATERAL LEADS Confirmed by ADAMS MCRAE MD ([id number]) on 11/22/2017 1:38:26 PM Referred By: Confirmed By:ADAMS MCRAE MD
== END 2017-11-22 05:47 | disposition home or self-care (01) ==
LOC: JER
PROC: 3E033NZ Introduction of Analgesics, Hypnotics, Sedatives into Peripheral Vein, Percutaneous Approach (ICD-10-PCS; principal; 2017-11-22)
DX: R10.13 Epigastric pain (principal); K21.9 Gastro-esophageal reflux disease without esophagitis; R00.1 Bradycardia, unspecified
CPT/HCPCS: 36415; 80053; 82550; 83690; 84484; 85025; 93005; 93010; 99283-25; J0131

== ENCOUNTER 2018-06-07 16:48 | Emergency (ER) | payer OTHER ==
[2018-06-07 16:55] VITALS: BMI 34.9
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
[2018-06-07] MEDS ORDERED: IBUPROFEN 600 MG TABLET (FP) PO ONE ×2 (18:55→18:56)
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
[2018-06-07 19:21] VITALS: BP 146/79; PULSE 70; TEMP 97.6
== END 2018-06-07 19:15 | disposition home or self-care (01) ==
LOC: JER 16:48
DX: M25.511 Pain in right shoulder (principal); S09.93XA Unspecified injury of face, initial encounter; V43.62XA Car passenger injured in collision with other type car in traffic accident, initial encounter; Y92.488 Other paved roadways as the place of occurrence of the external cause; W22.12XA Striking against or struck by front passenger side automobile airbag, initial encounter; Y93.89 Activity, other specified; Y99.8 Other external cause status
CPT/HCPCS: 71046-TC-FY; 73000-TC-RT-FY; 99282-25

== ENCOUNTER 2019-01-23 21:28 | Emergency (ER) | payer OTHER | END 2019-01-24 03:43 | disposition home or self-care (01) | LOC: JER 01-24 03:43 ==

== ENCOUNTER 2019-03-25 18:30 | Emergency (ER) | payer OTHER ==
[2019-03-25] MEDS ORDERED: ACETAMINOPHEN 500 MG TABLET (FP) PO ONE (18:59)
--- NOTE | 2019-03-25 18:59 | PDOC ---
Rapid Medical Evaluation Time Seen by Provider: 03/25/19 18:57 Medical Evaluation: Allergies Allergy/AdvReac Type Severity Reaction Status Date / Time oxycodone HCl [From Percocet] Allergy Severe Difficulty Verified 01/23/19 21:33 Breathing oxycodone Allergy Intermediate Itching Verified 01/23/19 21:33 hydromorphone HCl Allergy Verified 01/23/19 21:33 [From Dilaudid] morphine AdvReac Difficulty Verified 01/23/19 21:33 Breathing 03/25/19 18:58 HPI: Rash x2 days PE: Vesicular rash R side of neck ORDERS: Tylenol Discharge Disposition - Diagnosis Shingles outbreak - Referrals - Patient Instructions - Post Discharge Activity
[2019-03-25 19:06] VITALS: BP 124/67; PULSE 84; TEMP 98.3; BMI 25.7
--- NOTE | 2019-03-25 19:17 | PDOC ---
History of Present Illness - General Chief Complaint: Rash Stated Complaint: RASH TO THE RT NECK AREA Time Seen by Provider: 03/25/19 18:57 History Source: Patient - History of Present Illness Timing/Duration: reports: other Past History - Past Medical History Allergies/Adverse Reactions: Allergies Allergy/AdvReac Type Severity Reaction Status Date / Time oxycodone HCl [From Percocet] Allergy Severe Difficulty Verified 03/25/19 18:58 Breathing oxycodone Allergy Intermediate Itching Verified 03/25/19 18:58 hydromorphone HCl Allergy Verified 03/25/19 18:58 [From Dilaudid] morphine AdvReac Difficulty Verified 03/25/19 18:58 Breathing Home Medications: Ambulatory Orders Nifedipine [Procardia Xl] 60 mg PO DAILY 11/22/17 Acetaminophen [Tylenol -] 1,000 mg PO Q6H #30 tablet 03/25/19 Valacyclovir HCl [Valtrex] 1,000 mg PO TID #21 tablet 03/25/19 Anemia: Yes Asthma: No Cancer: Yes (carcenoid sydrome, remission) Cardiac Disorders: No CVA: No COPD: No CHF: No Dementia: No Diabetes: No GI Disorders: Yes (GERD) Disorders: No HTN: Yes Hypercholesterolemia: No Liver Disease: No Seizures: No Thyroid Disease: No - Surgical History Abdominal Surgery: Yes (salpingo oopherectomy) Appendectomy: Yes Cardiac Surgery: No Cholecystectomy: Yes Lung Surgery: No Neurologic Surgery: No Orthopedic Surgery: No - Immunization History Td Vaccination: Yes TDAP Vaccination: Yes Immunization Up to Date: Yes - Suicide/Smoking/Psychosocial Hx Smoking Status: No Smoking History: Never smoked Have you smoked in the past 12 months: No Number of Cigarettes Smoked Daily: 0 Hx Alcohol Use: No Drug/Substance Use Hx: No Substance Use Type: None Hx Substance Use Treatment: No Review of Systems - Review of Systems Constitutional: No: Chills, Fever Integumentary: Yes: Pruritus, Rash *Physical Exam - Vital Signs Last Vital Signs Temp Pulse Resp BP Pulse Ox 98.3 F 84 18 124/67 99 03/25/19 19:02 03/25/19 19:02 03/25/19 19:02 03/25/19 19:02 03/25/19 19:02 - Physical Exam General Appearance: Yes: Appropriately Dressed. No: Apparent Distress HEENT: positive: Normal Voice, Other (no lesions to R canal/TM) Neck: positive: Supple. negative: Lymphadenopathy (R), Lymphadenopathy (L) Respiratory/Chest: negative: Respiratory Distress Integumentary: positive: Dry, Warm, Rash (Erythematous papular lesions to R posterior neck extending to R lateral neck/shouder/upper chest, does not cross midline) Neurologic: positive: Fully Oriented, Alert, Normal Mood/Affect Medical Decision Making - Medical Decision Making 03/25/19 19:26 59 yo F, no sig hx, works as a floor nurse at [employer], here w/ rash to R neck/ shoulder chest that is both pruritic and painful x 3 days. No f/c See exam Shingles No obvious complications at this time Dc w/ valtrex, pain control Contact precautions Has f/u with PMD in am *DC/Admit/Observation/Transfer Diagnosis at time of Disposition: Shingles Qualifiers: Herpes zoster complications: without complications Qualified Code(s): B02.9 - Zoster without complications - Discharge Dispostion Disposition: HOME Condition at time of disposition: Good - Prescriptions Prescriptions: Acetaminophen [Tylenol -] 1,000 mg PO Q6H #30 tablet Valacyclovir HCl [Valtrex] 1,000 mg PO TID #21 tablet - Referrals - Patient Instructions Printed Discharge Instructions: Shingles Additional Instructions: Shingles is contagious especially to those who have never had chickenpox. Stay from women and children as well Take medications as directed Return for worsening of symptoms - Post Discharge Activity Forms/Work/School Notes: Back to Work
[2019-03-25] MEDS ORDERED: ACETAMINOPHEN 500 MG TABLET (FP) ONE (19:23)
== END 2019-03-25 19:33 | disposition home or self-care (01) ==
LOC: JERFT 18:30
DX: B02.9 Zoster without complications (principal); I10 Essential (primary) hypertension; K21.9 Gastro-esophageal reflux disease without esophagitis; Z88.6 Allergy status to analgesic agent
CPT/HCPCS: 99281-25

== ENCOUNTER 2019-09-27 03:11 | Emergency (ER) | payer OTHER ==
[2019-09-27 03:31] VITALS: TEMP 97.6; BMI 32.4
--- NOTE | 2019-09-27 03:32 | PDOC ---
History of Present Illness - General Chief Complaint: Nausea/Vomiting Stated Complaint: VOMITING History Source: Patient Exam Limitations: No Limitations - History of Present Illness Initial Comments: 09/27/19 03:38 59 yo F with a PMH of carcinoid syndrome (in remission), HTN, anemia, asthma, GERD, and anxiety, who presents to the emergency department today for evaluation of her vomiting that began suddenly at 7 pm. Per the patient, she states she was well prior to this time period. She states she has had multiple non bloody non billious vomiting with diarrhea without hematochezia and melena. Denies pain. Denies recent travel, however works in the vicinity with many sick individuals. Past History - Past Medical History Allergies/Adverse Reactions: Allergies Allergy/AdvReac Type Severity Reaction Status Date / Time oxycodone HCl [From Percocet] Allergy Severe Difficulty Verified 09/27/19 03:29 Breathing oxycodone Allergy Intermediate Itching Verified 09/27/19 03:29 hydromorphone HCl Allergy Verified 09/27/19 03:29 [From Dilaudid] morphine AdvReac Difficulty Verified 09/27/19 03:29 Breathing Home Medications: Ambulatory Orders Nifedipine [Procardia Xl] 60 mg PO DAILY 11/22/17 Acetaminophen [Tylenol -] 1,000 mg PO Q6H #30 tablet 03/25/19 Valacyclovir HCl [Valtrex] 1,000 mg PO TID #21 tablet 03/25/19 Anemia: Yes Asthma: No Cancer: Yes (carcenoid sydrome, remission) Cardiac Disorders: No CVA: No COPD: No CHF: No Dementia: No Diabetes: No GI Disorders: Yes (GERD) Disorders: No HTN: Yes Hypercholesterolemia: No Liver Disease: No Seizures: No Thyroid Disease: No - Surgical History Abdominal Surgery: Yes (salpingo oopherectomy) Appendectomy: Yes Cardiac Surgery: No Cholecystectomy: Yes Lung Surgery: No Neurologic Surgery: No Orthopedic Surgery: No - Immunization History Td Vaccination: Yes TDAP Vaccination: Yes Immunization Up to Date: Yes - Psycho Social/Smoking Cessation Hx Smoking Status: No Smoking History: Never smoked Have you smoked in the past 12 months: No Number of Cigarettes Smoked Daily: 0 Information on smoking cessation initiated: No Hx Alcohol Use: No Drug/Substance Use Hx: No Substance Use Type: None Hx Substance Use Treatment: No Review of Systems - Review of Systems Able to Perform ROS?: Yes Is the patient limited Croatian proficient: No Constitutional: No: Chills, Diaphoresis, Fever, Weakness HEENTM: No: Eye Pain, Ear Pain, Nose Pain, Throat Pain, Mouth Pain Respiratory: No: Cough, Shortness of Breath, Hemoptysis Cardiac (ROS): No: Chest Pain, Lightheadedness, Palpitations, Chest Tightness ABD/GI: Yes: Diarrhea, Nausea, Vomiting. No: Constipated, Rectal Bleeding, Tarry Stools : No: Burning, Dysuria, Hematuria, Incontinence Musculoskeletal: No: Back Pain, Joint Pain, Neck Pain Integumentary: No: Bruising, Erythema, Rash Neurological: No: Headache, Numbness, Tingling, Tremors Psychiatric: No: Change in Appetite Endocrine: No: Unexplained Weight Loss Hematologic/Lymphatic: No: Anemia *Physical Exam - Vital Signs Last Vital Signs Temp Pulse Resp BP Pulse Ox 97.6 F 54 L 18 153/85 97 09/27/19 03:29 09/27/19 03:29 09/27/19 03:29 09/27/19 03:09/27/19 03:29 - Physical Exam General Appearance: Yes: Nourished, Appropriately Dressed. No: Apparent Distress, Intoxicated HEENT: positive: EOMI, NIMA, Normal Voice, Symmetrical, Pharynx Normal, Hearing Grossly Normal. negative: Pale Conjunctivae, Scleral Icterus (R), Scleral Icterus (L), Muffled/Hoarse voice, Pharyngeal Erythema, Tonsillar Exudate, Tonsillar Erythema, Nasal Congestion, Rhinorrhea, Excessive drooling Neck: positive: Trachea midline, Supple. negative: Tender, Lymphadenopathy (R) , Lymphadenopathy (L), Tender lateral, Tender midline Respiratory/Chest: positive: Lungs Clear, Normal Breath Sounds. negative: Chest Tender, Respiratory Distress, Accessory Muscle Use, Crackles, Rales, Rhonchi, Stridor, Wheezing Cardiovascular: positive: Regular Rhythm, Regular Rate, S1, S2. negative: Systolic Murmur Gastrointestinal/Abdominal: positive: Normal Bowel Sounds, Flat, Soft. negative : Tender, Distended, Guarding, Rebound Lymphatic: negative: Adenopathy Musculoskeletal: positive: Normal Inspection. negative: CVA Tenderness, Vertebral Tenderness Extremity: positive: Normal Capillary Refill, Normal Inspection, Normal Range of Motion. negative: Tender, Swelling, Calf Tenderness Integumentary: positive: Normal Color, Dry, Warm. negative: Swelling, Ecchymosis Neurologic: positive: Fully Oriented, Alert, Normal Mood/Affect ED Treatment Course - LABORATORY CBC & Chemistry Diagram: 09/27/19 04:05 09/27/19 04:05 Medical Decision Making - Medical Decision Making 09/27/19 06:49 59 yo F with a PMH of carcinoid syndrome (in remission), HTN, anemia, asthma, GERD, and anxiety, who presents to the emergency department today for evaluation of her vomiting that began suddenly at 7 pm. Initial vitals Initial Vital Signs Temp Pulse Resp BP Pulse Ox 97.6 F 54 L 18 153/85 97 09/27/19 03:29 09/27/19 03:29 09/27/19 03:29 09/27/19 03:29 09/27/19 03:29 Work up ddx: patient presents with N/V/D without abdominal pain. likely secondary to gastroenteritis of viral etiology. will treat symptomatically and draw labs to rule out ACS vs pancreatitis Laboratory Tests 09/27/19 09/27/19 09/27/19 04:05 04:05 04:05 WBC 6.0 RBC 4.36 Hgb 13.4 Hct 40.6 MCV 93.2 MCH 30.8 MCHC 33.1 RDW 14.1 Plt Count 248 MPV 9.6 Absolute Neuts (auto) 4.3 Neutrophils % 70.9 Lymphocytes % 21.6 Monocytes % 6.5 Eosinophils % 0.2 D Basophils % 0.8 Nucleated RBC % 0 Sodium 140 Potassium 3.8 Chloride 105 Carbon Dioxide 27 Anion Gap 8 BUN 15.8 Creatinine 0.8 Est GFR (CKD-EPI)AfAm 94.19 Est GFR (CKD-EPI)NonAf 81.27 Random Glucose 112 H Calcium 9.1 Total Bilirubin 0.8 AST 27 ALT 41 Alkaline Phosphatase 104 Creatine Kinase 113 Troponin I < 0.02 Total Protein 8.5 H Albumin 4.0 Lipase 126 labs within normal limits. patient received zofran, tylenol, and GI cocktail. the patient states she was still having persistent nausea and given reglan and fluids. EKG: ventricular rate is 51 bpm, AR interval is 164 ms. Sinus bradycardia without ST elevations or depressions. Patient has known history of bradycardia. CXR was within normal limits; no acute pathology noted Patient was well on re-assessment. continue to have no abdominal pain. will discharge patient back to home with strict return precautions Dispo: Discharge Discharge - Discharge Information Problems reviewed: Yes Clinical Impression/Diagnosis: Vomiting Condition: Stable Disposition: HOME - Follow up/Referral Referrals: Joyce Sen MD [Primary Care Provider] - - Patient Discharge Instructions Patient Printed Discharge Instructions: DI for Vomiting -- Adult Additional Instructions: You were evaluated for your nausea and vomiting episodes. Please follow up with your primary medical doctor within 1 week after discharge for follow up care and management. Please return to the emergency department if you have worsening or new concerning symptoms. Thank you. - Post Discharge Activity
[2019-09-27] MEDS ORDERED: ONDANSETRON *ODT* 4 MG TABLET SL ONE (03:34)
[2019-09-27] MEDS ORDERED: SODIUM CHLORIDE 1,000 ML IV STA (03:37)
[2019-09-27] MEDS ORDERED: ACETAMINOPHEN 1000 MG/100 ML VIAL (NON FORMULARY) IVPB ONE (03:37)
[2019-09-27] MEDS ORDERED: FAMOTIDINE 20 MG/50 ML IVPB 20 MG/50 ML MG IVPB ONE ×2 (03:37→04:00)
[2019-09-27] MEDS ORDERED: ACETAMINOPHEN INJECTION 100 ML IVPB ONE (03:59)
[2019-09-27] MEDS ORDERED: ONDANSETRON 4 MG/2 ML VIAL ONE (03:59)
[2019-09-27] MEDS ORDERED: ONDANSETRON 4 MG/2 ML VIAL IVPUSH ONE (04:01)
[2019-09-27 04:24] LABS: BASO % 0.8 % (0-2.0); EOS % 0.2 % (0-4.5); HEMATOCRIT 40.6 % (32.4-45.2); HEMOGLOBIN 13.4 GM/dL (10.7-15.3); LYMPH % 21.6 % (8-40); MCH 30.8 pg (25.7-33.7); MCHC 33.1 g/dl (32.0-36.0); MEAN CELL VOLUME 93.2 fl (80-96); MEAN PLT VOLUME 9.6 fl (7.5-11.1); MONO % 6.5 % (3.8-10.2); NEUT % 70.9 % (42.8-82.8); PLATELET COUNT 248 K/MM3 (134-434); RBC 4.36 M/mm3 (3.60-5.2); RDW 14.1 % (11.6-15.6)
[2019-09-27 04:59] LABS: ALK PHOS 104 U/L (45-117); ANION GAP 8 MMOL/L (8-16); BILIRUBIN,TOTAL 0.8 mg/dL (0.2-1); BLOOD UREA NITROGEN 15.8 mg/dL (7-18); CALCIUM 9.1 mg/dL (8.5-10.1); CHLORIDE 105 mmol/L (98-107); CO2 27 mmol/L (21-32); CREATININE 0.8 mg/dL (0.55-1.3); GLUCOSE,RANDOM 112 mg/dL (74-106); POTASSIUM 3.8 mmol/L (3.5-5.1); SGOT/AST 27 U/L (15-37); SGPT/ALT 41 U/L (13-61); SODIUM 140 mmol/L (136-145); TOT PROT 8.5 g/dl (6.4-8.2)
--- NOTE | 2019-09-27 05:15 | PDOC ---
Attending Attestation - Resident Resident Name: CherylLawrence - ED Attending Attestation I have performed the following: I have examined & evaluated the patient, The case was reviewed & discussed with the resident, I agree w/resident's findings & plan, Exceptions are as noted - HPI HPI: 10/03/19 20:44 See resident HPI - Physicial Exam PE: 10/03/19 20:44 Agree with documented exam - Medical Decision Making 10/03/19 20:45 59F with n/v/d today likely acute gastroenteritis of viral etiology symptomatic tx, ivf dispo per clinical course
[2019-09-27] MEDS ORDERED: METOCLOPRAMIDE HCL INJECTION 10 MG/2 ML VIAL IVPB ONE (05:21)
[2019-09-27] MEDS ORDERED: METOCLOPRAMIDE HCL INJECTION 10 MG/2 ML VIAL ONE (05:31)
[2019-09-27 06:48] VITALS: BP 147/76; PULSE 62
--- NOTE | 2019-09-27 12:26 | EKG ---
Test Reason : Blood Pressure : / mmHG Vent. Rate : 051 BPM Atrial Rate : 051 BPM P-R Int : 164 ms QRS Dur : 088 ms QT Int : 466 ms P-R-T Axes : 032 021 038 degrees QTc Int : 429 ms SINUS BRADYCARDIA WHEN COMPARED WITH ECG OF 22-NOV-2017 04:24, NONSPECIFIC T WAVE ABNORMALITY NO LONGER EVIDENT IN ANTEROLATERAL LEADS Confirmed by LARY RAZO MD ([id number]) on 09/27/2019 12:26:43 PM Referred By: Confirmed By:LARY RAZO MD
== END 2019-09-27 06:46 | disposition home or self-care (01) ==
LOC: JER 03:11
PROC: 3E033GC Introduction of Other Therapeutic Substance into Peripheral Vein, Percutaneous Approach (ICD-10-PCS; principal; 2019-09-27)
PROC: 3E033NZ Introduction of Analgesics, Hypnotics, Sedatives into Peripheral Vein, Percutaneous Approach (ICD-10-PCS; 2019-09-27)
PROC: 3E033GC Introduction of Other Therapeutic Substance into Peripheral Vein, Percutaneous Approach (ICD-10-PCS; 2019-09-27)
PROC: 3E033GC Introduction of Other Therapeutic Substance into Peripheral Vein, Percutaneous Approach (ICD-10-PCS; 2019-09-27)
DX: R11.10 Vomiting, unspecified (principal); I10 Essential (primary) hypertension; D64.9 Anemia, unspecified; K21.9 Gastro-esophageal reflux disease without esophagitis; Z85.89 Personal history of malignant neoplasm of other organs and systems; Z88.5 Allergy status to narcotic agent; F41.9 Anxiety disorder, unspecified; Z90.79 Acquired absence of other genital organ(s); Z90.722 Acquired absence of ovaries, bilateral
CPT/HCPCS: 36415; 71045-TC-FY; 80053; 82550; 83690; 84484; 85025; 93005; 93010; 99285-25; J0131; J7030

== ENCOUNTER 2020-12-10 14:34 | Emergency (ER) | payer OTHER ==
[2020-12-10 14:56] VITALS: BP 151/75; PULSE 65; TEMP 98.3; BMI 32.9
[2020-12-10] MEDS ORDERED: LIDOCAINE 5% TOPICAL PATCH TP ONE (15:32)
[2020-12-10] MEDS ORDERED: KETOROLAC TROMETHAMINE 60 MG/2 ML VIAL IM ONE (15:32)
[2020-12-10] MEDS ORDERED: diazePAM 5 MG TABLET PO ONE (15:32)
[2020-12-10] MEDS ORDERED: KETOROLAC TROMETHAMINE 30 MG/1 ML VIAL ONE (15:34)
[2020-12-10] MEDS ORDERED: diazePAM 5 MG TABLET ONE (15:34)
[2020-12-10] MEDS ORDERED: LIDOCAINE 5% TOPICAL PATCH ONE (15:34)
== END 2020-12-10 16:57 | disposition home or self-care (01) ==
LOC: JERFT 14:34
PROC: 3E0233Z Introduction of Anti-inflammatory into Muscle, Percutaneous Approach (ICD-10-PCS; principal; 2020-12-10)
DX: M54.5 Low back pain (principal)
CPT/HCPCS: 72100-TC-FY; 99284-25

== ENCOUNTER 2022-02-21 04:32 | Day surgery (SDC) | payer BC, OTHER ==
[2022-02-17 14:45] VITALS: BMI 35.6
[2022-02-21 10:57] LABS: INR 1.01 (0.83-1.09); PROTHROMBIN TIME (PATIENT) 11.6 SEC (9.7-13.0)
[2022-02-21 10:59] LABS: ACTIVATED PTT 30.6 SECONDS (25.2-36.5)
[2022-02-21] MEDS ORDERED: MIDAZOLAM HCL 2 MG/2 ML SINGLE DOSE VIAL ONE (14:14)
[2022-02-21] MEDS ORDERED: PROPOFOL 20 ML ONE (14:57)
[2022-02-21] MEDS ORDERED: SUCCINYLCHOLINE CHLORIDE 200 MG/10 ML SYRINGE ONE (14:57)
[2022-02-21] MEDS ORDERED: ceFAZolin SODIUM 1 GM VIAL IVPB ONE (15:05)
[2022-02-21] MEDS ORDERED: KETOROLAC TROMETHAMINE 30 MG/1 ML VIAL ONE (15:13)
[2022-02-21] MEDS ORDERED: DEXAMETHASONE SOD PHOSPHATE 4 MG/1 ML VIAL ONE (15:13)
[2022-02-21] MEDS ORDERED: ceFAZolin SODIUM 1 GM VIAL ONE (15:13)
[2022-02-21] MEDS ORDERED: ONDANSETRON 4 MG/2 ML VIAL IVPUSH PRN (15:46)
[2022-02-21] MEDS ORDERED: ACETAMINOPHEN 1000 MG/100 ML BAG IVPB PRN (15:46)
[2022-02-21] MEDS ORDERED: LACTATED RINGERS SOLUTION 1,000 ML IV SCH (16:00)
[2022-02-21] MEDS ORDERED: FENTANYL CITRATE/PF 50 MCG/ML VIAL ONE ×2 (16:15→16:27)
[2022-02-21] MEDS ORDERED: ONDANSETRON 4 MG/2 ML VIAL ONE (17:30)
[2022-02-21 19:43] VITALS: BP 130/70; PULSE 70; TEMP 97.3
== END 2022-02-21 19:30 | disposition home or self-care (01) ==
LOC: JASU-SURG 04:32
PROVIDERS: ATTEND Obstetrics & Gynecology
PROC: 0UDB7ZX Extraction of Endometrium, Via Natural or Artificial Opening, Diagnostic (ICD-10-PCS; 2022-02-21)
PROC: 0UJD8ZZ Inspection of Uterus and Cervix, Via Natural or Artificial Opening Endoscopic (ICD-10-PCS; 2022-02-21)
PROC: 0UB98ZZ Excision of Uterus, Via Natural or Artificial Opening Endoscopic (ICD-10-PCS; principal; 2022-02-21 12:00)
DX: N95.0 Postmenopausal bleeding (principal); D25.0 Submucous leiomyoma of uterus
CPT/HCPCS: 36415; 85610; 85730; 86850; 86900; 86901; 88305-TC; 94760

== ENCOUNTER 2023-01-02 16:11 | Emergency (ER) | payer BC ==
[2023-01-02 16:21] VITALS: TEMP 98; BMI 34.9
[2023-01-02] MEDS ORDERED: FAMOTIDINE 20 MG TABLET PO ONE (16:34)
[2023-01-02] MEDS ORDERED: EPINEPHrine 1:1,000 0.3 MG/0.3 ML SYR IM ONE (16:34)
[2023-01-02] MEDS ORDERED: SODIUM CHLORIDE 0.9% 500 ML INFUS.BAG IV ONE (16:34)
[2023-01-02] MEDS ORDERED: methylPREDNISolone NA SUCC 125 MG/2 ML VIAL IVPUSH ONE (16:34)
[2023-01-02] MEDS ORDERED: ONDANSETRON 4 MG/2 ML VIAL IVPUSH ONE (16:37)
[2023-01-02] MEDS ORDERED: EPINEPHrine/PF 1 MG/1 ML (1:1,000) AMPULE ONE (16:37)
[2023-01-02] MEDS ORDERED: methylPREDNISolone NA SUCC 125 MG/2 ML VIAL ONE (16:38)
[2023-01-02] MEDS ORDERED: FAMOTIDINE 20 MG/50 ML IVPB 20 MG/50 ML MG IVPB ONE (16:38)
[2023-01-02] MEDS ORDERED: DEXAMETHASONE SOD PHOSPHATE 10 MG/1 ML VIAL IVPUSH ONE (16:59)
[2023-01-02 17:04] VITALS: BP 144/73; PULSE 78; RESP 22
[2023-01-02] MEDS ORDERED: ONDANSETRON 4 MG/2 ML VIAL ONE (17:05)
[2023-01-02] MEDS ORDERED: CEPHALEXIN 250 MG/5 ML ORAL SUSPENSION PO ONE (19:46)
[2023-01-02] MEDS ORDERED: CEPHALEXIN MONOHYDRATE 500 MG CAPSULE (UD) PO ONE (19:51)
[2023-01-02] MEDS ORDERED: CEPHALEXIN MONOHYDRATE 500 MG CAPSULE (UD) ONE (20:19)
[2023-01-02 21:30] LABS: THROAT:GRP A STREP DETECTED (NOTDETECTED)
== END 2023-01-02 20:28 | disposition home or self-care (01) ==
LOC: JER 16:11
PROC: 3E033GC Introduction of Other Therapeutic Substance into Peripheral Vein, Percutaneous Approach (ICD-10-PCS; principal; 2023-01-02)
PROC: 3E033GC Introduction of Other Therapeutic Substance into Peripheral Vein, Percutaneous Approach (ICD-10-PCS; 2023-01-02)
PROC: 3E033GC Introduction of Other Therapeutic Substance into Peripheral Vein, Percutaneous Approach (ICD-10-PCS; 2023-01-02)
PROC: 3E023GC Introduction of Other Therapeutic Substance into Muscle, Percutaneous Approach (ICD-10-PCS; 2023-01-02)
DX: R22.0 Localized swelling, mass and lump, head (principal); R51.9 Headache, unspecified; R11.0 Nausea; J02.0 Streptococcal pharyngitis; Z20.822 Contact with and (suspected) exposure to COVID-19
CPT/HCPCS: 0241U-QW; 87651; 93005; 93010; 99284-25; J0171

== ENCOUNTER 2023-01-05 21:47 | Emergency (ER) | payer BC ==
[2023-01-05 21:55] VITALS: BP 149/90; PULSE 76; RESP 20; TEMP 97.4; BMI 34.9
[2023-01-05] MEDS ORDERED: METOCLOPRAMIDE HCL INJECTION 10 MG/2 ML VIAL IVPUSH ONE (22:09)
[2023-01-05] MEDS ORDERED: SODIUM CHLORIDE 0.9% 500 ML INFUS.BAG IV ONE (22:11)
[2023-01-05] MEDS ORDERED: ONDANSETRON 4 MG/2 ML VIAL ONE (22:13)
[2023-01-05] MEDS ORDERED: METOCLOPRAMIDE HCL INJECTION 10 MG/2 ML VIAL ONE (22:20)
[2023-01-05] MEDS ORDERED: FAMOTIDINE 20 MG/50 ML IVPB 20 MG/50 ML MG IVPB ONE ×2 (22:34→22:37)
[2023-01-05 22:43] LABS: VENOUS O2 SATURATION 54.9 % (70-80); VENOUS PCO2 32.7 mmHg (38-52); VENOUS PH 7.493 (7.310-7.410)
[2023-01-05 22:44] LABS: BASO % 0.6 % (0-2.0); EOS % 0.8 % (0-4.5); HEMATOCRIT 41.9 % (32.4-45.2); HEMOGLOBIN 14.1 GM/dL (10.7-15.3); LYMPH % 15.2 % (8-40); MCH 30.6 pg (25.7-33.7); MCHC 33.6 g/dl (32.0-36.0); MEAN CELL VOLUME 91.1 fl (80-96); MEAN PLT VOLUME 9.3 fl (7.5-11.1); MONO % 5.6 % (3.8-10.2); NEUT % 77.8 % (42.8-82.8); PLATELET COUNT 312 10^3/uL (134-434); RDW 14.7 % (11.6-15.6); WHITE BLOOD COUNT 10.6 K/mm3 (4.0-10.0)
[2023-01-05] MEDS ORDERED: TRIMETHOBENZAMIDE HCL 200MG/2ML INJ IM ONE ×2 (22:51→23:42)
[2023-01-05 23:01] LABS: POTASSIUM 3.8 mmol/L (3.5-5.1)
[2023-01-05 23:03] LABS: CALCIUM 9.6 mg/dL (8.5-10.1)
[2023-01-05 23:04] LABS: ALBUMIN 4.1 g/dl (3.4-5.0); BLOOD UREA NITROGEN 21.6 mg/dL (7-18)
[2023-01-05 23:06] LABS: CREATININE 1.1 mg/dL (0.55-1.3)
[2023-01-05 23:08] LABS: BILIRUBIN,TOTAL 0.8 mg/dL (0.2-1)
[2023-01-05] MEDS ORDERED: VANCOMYCIN 1 GM in D5W (PRE-DOCKED) 1,000 MG/250 ML (RESTRICTED TO ID ONLY IVPB ONE (23:28)
[2023-01-05] MEDS ORDERED: ACETAMINOPHEN 1000 MG/100 ML BAG IVPB ONE (23:46)
[2023-01-05] MEDS ORDERED: ACETAMINOPHEN INJECTION 100 ML IVPB ONE (23:48)
== END 2023-01-06 02:29 | disposition home or self-care (01) ==
LOC: JER 21:47
PROC: 3E033GC Introduction of Other Therapeutic Substance into Peripheral Vein, Percutaneous Approach (ICD-10-PCS; principal; 2023-01-05)
PROC: 3E033GC Introduction of Other Therapeutic Substance into Peripheral Vein, Percutaneous Approach (ICD-10-PCS; 2023-01-05)
PROC: 3E023GC Introduction of Other Therapeutic Substance into Muscle, Percutaneous Approach (ICD-10-PCS; 2023-01-05)
PROC: 3E033NZ Introduction of Analgesics, Hypnotics, Sedatives into Peripheral Vein, Percutaneous Approach (ICD-10-PCS; 2023-01-06)
DX: R11.2 Nausea with vomiting, unspecified (principal)
CPT/HCPCS: 36415; 71045-TC-FY; 80053; 82803; 83690; 83735; 85025; 93005; 93010; 99285-25

== ENCOUNTER 2023-01-10 03:22 | Observation (INO) | payer BC ==
[2023-01-10 03:38] VITALS: BMI 34.9
[2023-01-10] MEDS ORDERED: FAMOTIDINE 20 MG/50 ML IVPB 20 MG/50 ML MG IVPB ONE ×2 (04:15→04:19)
[2023-01-10] MEDS ORDERED: LACTATED RINGERS SOLUTION 1000 ML INFUS.BAG IV ONE ×2 (04:15→05:17)
[2023-01-10] MEDS ORDERED: ONDANSETRON 4 MG/2 ML VIAL IVPUSH ONE (04:15)
[2023-01-10] MEDS ORDERED: ONDANSETRON 4 MG/2 ML VIAL ONE (04:19)
[2023-01-10] MEDS ORDERED: ACETAMINOPHEN 1000 MG/100 ML BAG IVPB ONE (04:34)
[2023-01-10] MEDS ORDERED: ACETAMINOPHEN INJECTION 100 ML IVPB ONE (04:35)
[2023-01-10 04:45] LABS: BASO % 0.6 % (0-2.0); EOS % 2.4 % (0-4.5); HEMATOCRIT 42.6 % (32.4-45.2); HEMOGLOBIN 14.5 GM/dL (10.7-15.3); LYMPH % 26.2 % (8-40); MCH 31.1 pg (25.7-33.7); MCHC 34.1 g/dl (32.0-36.0); MEAN CELL VOLUME 91.2 fl (80-96); MEAN PLT VOLUME 8.7 fl (7.5-11.1); MONO % 12.2 % (3.8-10.2); NEUT % 58.6 % (42.8-82.8); PLATELET COUNT 291 10^3/uL (134-434); RBC 4.67 M/mm3 (3.60-5.2); RDW 14.4 % (11.6-15.6); WHITE BLOOD COUNT 7.6 K/mm3 (4.0-10.0)
[2023-01-10 05:05] LABS: POTASSIUM 3.4 mmol/L (3.5-5.1)
[2023-01-10 05:07] LABS: CALCIUM 9.1 mg/dL (8.5-10.1)
[2023-01-10 05:08] LABS: ALBUMIN 3.8 g/dl (3.4-5.0); BLOOD UREA NITROGEN 9.5 mg/dL (7-18); MAGNESIUM 2.1 mg/dL (1.8-2.4)
[2023-01-10 05:11] LABS: CREATININE 0.9 mg/dL (0.55-1.3)
[2023-01-10 05:13] LABS: BILIRUBIN,TOTAL 0.5 mg/dL (0.2-1); TOT PROT 8.6 g/dl (6.4-8.2)
[2023-01-10 05:14] LABS: LACTIC ACID 2.1 mmol/L (0.4-2.0)
[2023-01-10] MEDS ORDERED: TRIMETHOBENZAMIDE HCL 200MG/2ML INJ IM ONE ×2 (06:27→07:35)
[2023-01-10] MEDS ORDERED: POLYETHYLENE GLYCOL (HEALTHYLAX) 3350 17 GM PACKET PO SCH ×2 (10:15→14:56)
[2023-01-10] MEDS ORDERED: DOCUSATE SODIUM 100 MG CAPSULE (FP) PO ONE ×2 (10:20→10:23)
[2023-01-10] MEDS ORDERED: KETOROLAC TROMETHAMINE 30 MG/1 ML VIAL ONE (12:49)
[2023-01-10] MEDS: KETOROLAC TROMETHAMINE 30 MG/1 ML VIAL IVPUSH PRN (12:50)
[2023-01-10] MEDS: DEXTROSE 5%-0.45% SALINE 990 ML with POTASSIUM CHLORIDE 20 MEQ IV SCH (13:34)
[2023-01-10] MEDS ORDERED: POLYETHYLENE GLYCOL 3350 255 GM BTL PO ONE (14:32)
[2023-01-10] MEDS ORDERED: SODIUM PHOSPHATE/NA BIPHOS 133 ML ENEMA RC ONE ×2 (14:32→14:45)
[2023-01-10] MEDS ORDERED: PANTOPRAZOLE SODIUM 40 MG in SODIUM CHLORIDE 100 ML IVPUSH ONE (14:33)
[2023-01-10] MEDS ORDERED: ONDANSETRON 4 MG/2 ML VIAL IVPB STA (14:35)
[2023-01-10] MEDS ORDERED: PANTOPRAZOLE SODIUM 40 MG VIAL IVPUSH ONE (15:00)
[2023-01-10] MEDS: ONDANSETRON 4 MG/2 ML VIAL IVPB SCH ×3 (16:04→23:33)
[2023-01-10] MEDS: METOCLOPRAMIDE HCL INJECTION 10 MG/2 ML VIAL IVPUSH SCH ×2 (16:08→23:01)
[2023-01-10] MEDS: ACETAMINOPHEN 1000 MG/100 ML BAG IVPB PRN (21:45)
[2023-01-11] MEDS: ONDANSETRON 4 MG/2 ML VIAL IVPB SCH (03:51)
[2023-01-11] MEDS: METOCLOPRAMIDE HCL INJECTION 10 MG/2 ML VIAL IVPUSH SCH ×3 (05:46→23:17)
[2023-01-11] MEDS ORDERED: ONDANSETRON 4 MG/2 ML VIAL IVPB PRN (06:00)
[2023-01-11 07:37] LABS: POTASSIUM 3.7 mmol/L (3.5-5.1)
[2023-01-11 07:39] LABS: ALBUMIN 3.2 g/dl (3.4-5.0); CALCIUM 8.3 mg/dL (8.5-10.1)
[2023-01-11 07:40] LABS: BLOOD UREA NITROGEN 7.6 mg/dL (7-18)
[2023-01-11 07:44] LABS: BILIRUBIN,TOTAL 0.8 mg/dL (0.2-1); TOT PROT 7.3 g/dl (6.4-8.2)
[2023-01-11] MEDS: ACETAMINOPHEN 1000 MG/100 ML BAG IVPB PRN (07:48)
[2023-01-11] MEDS: PANTOPRAZOLE SODIUM 40 MG VIAL IVPUSH SCH (10:39)
[2023-01-11] MEDS ORDERED: SODIUM PHOSPHATE/NA BIPHOS 133 ML ENEMA RC ONE (13:08)
[2023-01-11] MEDS ORDERED: SODIUM PHOSPHATE/NA BIPHOS 133 ML ENEMA PR ONE (13:08)
[2023-01-11] MEDS: KETOROLAC TROMETHAMINE 30 MG/1 ML VIAL IVPUSH PRN (13:41)
[2023-01-11] MEDS: DEXTROSE 5%-0.45% SALINE 990 ML with POTASSIUM CHLORIDE 20 MEQ IV SCH ×2 (16:58→20:29)
[2023-01-11] MEDS: NIFEdipine E.R 60 MG TABLET PO SCH (16:58)
[2023-01-11] MEDS: ACETAMINOPHEN/CAFFEINE/BUTALBITAL 1 TAB PO PRN (17:38)
[2023-01-12] MEDS: METOCLOPRAMIDE HCL INJECTION 10 MG/2 ML VIAL IVPUSH SCH ×3 (06:30→21:51)
[2023-01-12 07:46] LABS: BASO % 0.6 % (0-2.0); EOS % 3.8 % (0-4.5); HEMATOCRIT 40.9 % (32.4-45.2); HEMOGLOBIN 13.9 GM/dL (10.7-15.3); LYMPH % 26.2 % (8-40); MCHC 33.9 g/dl (32.0-36.0); MEAN CELL VOLUME 91.5 fl (80-96); MEAN PLT VOLUME 9.1 fl (7.5-11.1); MONO % 8.1 % (3.8-10.2); NEUT % 61.3 % (42.8-82.8); PLATELET COUNT 283 10^3/uL (134-434); RBC 4.47 M/mm3 (3.60-5.2); RDW 14.2 % (11.6-15.6); WHITE BLOOD COUNT 7.2 K/mm3 (4.0-10.0)
[2023-01-12 07:59] LABS: POTASSIUM 3.6 mmol/L (3.5-5.1)
[2023-01-12 08:08] LABS: ALBUMIN 3.6 g/dl (3.4-5.0)
[2023-01-12 08:11] LABS: CREATININE 0.9 mg/dL (0.55-1.3)
[2023-01-12 08:13] LABS: BILIRUBIN,TOTAL 0.9 mg/dL (0.2-1)
[2023-01-12] MEDS ORDERED: POLYETHYLENE GLYCOL 3350 255 GM BTL PO ONE (09:24)
[2023-01-12] MEDS: NIFEdipine E.R 60 MG TABLET PO SCH (10:05)
[2023-01-12] MEDS: PANTOPRAZOLE SODIUM 40 MG VIAL IVPUSH SCH (11:11)
[2023-01-12] MEDS ORDERED: MAGNESIUM CITRATE 300 ML BOTTLE PO ONE (11:27)
[2023-01-12] MEDS: ACETAMINOPHEN/CAFFEINE/BUTALBITAL 1 TAB PO PRN ×2 (13:12→23:31)
[2023-01-12] MEDS: DEXTROSE 5%-0.45% SALINE 990 ML with POTASSIUM CHLORIDE 20 MEQ IV SCH (13:14)
[2023-01-13] MEDS: METOCLOPRAMIDE HCL INJECTION 10 MG/2 ML VIAL IVPUSH SCH ×3 (05:58→23:22)
[2023-01-13] MEDS: NIFEdipine E.R 60 MG TABLET PO SCH (09:46)
[2023-01-13] MEDS: SIMETHICONE 80 MG TAB.CHEW (FP) PO SCH ×4 (09:46→23:20)
[2023-01-13] MEDS: PANTOPRAZOLE SODIUM 40 MG VIAL IVPUSH SCH (09:53)
[2023-01-13] MEDS: DEXTROSE 5%-0.45% SALINE 990 ML with POTASSIUM CHLORIDE 20 MEQ IV SCH (13:32)
[2023-01-13] MEDS: ENOXAPARIN NA (PORCINE) 40 MG/0.4 ML DISP.SYRIN SQ SCH (13:32)
[2023-01-13] MEDS: RIFAXIMIN 550 MG TABLET PO SCH ×2 (13:32→23:20)
[2023-01-13] MEDS: KETOROLAC TROMETHAMINE 30 MG/1 ML VIAL IVPUSH PRN (20:13)
[2023-01-14] MEDS: RIFAXIMIN 550 MG TABLET PO SCH ×3 (06:15→21:43)
[2023-01-14] MEDS: METOCLOPRAMIDE HCL INJECTION 10 MG/2 ML VIAL IVPUSH SCH ×3 (06:15→23:49)
[2023-01-14] MEDS: PANTOPRAZOLE 40 MG TABLET PO SCH (10:23)
[2023-01-14] MEDS: SIMETHICONE 80 MG TAB.CHEW (FP) PO SCH ×4 (10:23→21:43)
[2023-01-14] MEDS: ENOXAPARIN NA (PORCINE) 40 MG/0.4 ML DISP.SYRIN SQ SCH (10:23)
[2023-01-14] MEDS: NIFEdipine E.R 60 MG TABLET PO SCH (10:23)
[2023-01-14] MEDS: ACETAMINOPHEN/CAFFEINE/BUTALBITAL 1 TAB PO PRN (13:21)
[2023-01-14] MEDS ORDERED: KETOROLAC TROMETHAMINE 30 MG/1 ML VIAL IVPUSH ONE (21:44)
[2023-01-15] MEDS: DEXTROSE 5%-0.45% SALINE 990 ML with POTASSIUM CHLORIDE 20 MEQ IV SCH ×2 (03:26→07:18)
[2023-01-15] MEDS: RIFAXIMIN 550 MG TABLET PO SCH ×3 (07:03→21:54)
[2023-01-15] MEDS: METOCLOPRAMIDE HCL INJECTION 10 MG/2 ML VIAL IVPUSH SCH ×3 (07:03→22:55)
[2023-01-15] MEDS: ENOXAPARIN NA (PORCINE) 40 MG/0.4 ML DISP.SYRIN SQ SCH (09:16)
[2023-01-15] MEDS: PANTOPRAZOLE 40 MG TABLET PO SCH (09:16)
[2023-01-15] MEDS: SIMETHICONE 80 MG TAB.CHEW (FP) PO SCH ×4 (09:16→21:54)
[2023-01-15] MEDS: NIFEdipine E.R 60 MG TABLET PO SCH (09:16)
[2023-01-15 12:10] LABS: BASO % 0.5 % (0-2.0); EOS % 2.9 % (0-4.5); HEMATOCRIT 39.5 % (32.4-45.2); HEMOGLOBIN 13.6 GM/dL (10.7-15.3); LYMPH % 31.1 % (8-40); MCH 31.3 pg (25.7-33.7); MCHC 34.3 g/dl (32.0-36.0); MEAN CELL VOLUME 91.1 fl (80-96); MEAN PLT VOLUME 8.7 fl (7.5-11.1); MONO % 10.6 % (3.8-10.2); NEUT % 54.9 % (42.8-82.8); PLATELET COUNT 290 10^3/uL (134-434); RBC 4.33 M/mm3 (3.60-5.2); RDW 14.6 % (11.6-15.6); WHITE BLOOD COUNT 6.7 K/mm3 (4.0-10.0)
[2023-01-15 12:26] LABS: POTASSIUM 4.1 mmol/L (3.5-5.1)
[2023-01-15 12:28] LABS: CALCIUM 9.4 mg/dL (8.5-10.1)
[2023-01-15 12:29] LABS: ALBUMIN 3.8 g/dl (3.4-5.0); BLOOD UREA NITROGEN 11.1 mg/dL (7-18)
[2023-01-15 12:33] LABS: TOT PROT 8.5 g/dl (6.4-8.2)
[2023-01-15 12:34] LABS: BILIRUBIN,TOTAL 0.5 mg/dL (0.2-1)
[2023-01-15] MEDS ORDERED: ACETAMINOPHEN 1000 MG/100 ML BAG IVPB ONE (20:28)
[2023-01-15] MEDS: POLYETHYLENE GLYCOL (HEALTHYLAX) 3350 17 GM PACKET PO SCH (21:54)
[2023-01-16] MEDS: DEXTROSE 5%-0.45% SALINE 990 ML with POTASSIUM CHLORIDE 20 MEQ IV SCH (03:02)
[2023-01-16] MEDS: METOCLOPRAMIDE HCL INJECTION 10 MG/2 ML VIAL IVPUSH SCH (06:31)
[2023-01-16] MEDS: RIFAXIMIN 550 MG TABLET PO SCH (06:31)
[2023-01-16 06:34] VITALS: RESP 18
[2023-01-16] MEDS: ENOXAPARIN NA (PORCINE) 40 MG/0.4 ML DISP.SYRIN SQ SCH (09:43)
[2023-01-16] MEDS: POLYETHYLENE GLYCOL (HEALTHYLAX) 3350 17 GM PACKET PO SCH (09:44)
[2023-01-16] MEDS: PANTOPRAZOLE 40 MG TABLET PO SCH (09:44)
[2023-01-16] MEDS: NIFEdipine E.R 60 MG TABLET PO SCH (09:44)
[2023-01-16] MEDS: SIMETHICONE 80 MG TAB.CHEW (FP) PO SCH (09:44)
[2023-01-16 12:45] VITALS: BP 153/83; PULSE 53; TEMP 97.5
== END 2023-01-16 13:28 | disposition home or self-care (01) ==
LOC: JER 03:22 → JERBED 10:12 → J7W 15:27
PROVIDERS: ADMIT Internal Medicine; ATTEND Internal Medicine
PROC: 3E033GC Introduction of Other Therapeutic Substance into Peripheral Vein, Percutaneous Approach (ICD-10-PCS; principal; 2023-01-10)
PROC: 3E033NZ Introduction of Analgesics, Hypnotics, Sedatives into Peripheral Vein, Percutaneous Approach (ICD-10-PCS; 2023-01-10)
PROC: 3E0337Z Introduction of Electrolytic and Water Balance Substance into Peripheral Vein, Percutaneous Approach (ICD-10-PCS; 2023-01-10)
PROC: 3E0333Z Introduction of Anti-inflammatory into Peripheral Vein, Percutaneous Approach (ICD-10-PCS; 2023-01-10)
DX: R11.2 Nausea with vomiting, unspecified (principal); R10.12 Left upper quadrant pain; K83.8 Other specified diseases of biliary tract; K52.9 Noninfective gastroenteritis and colitis, unspecified; K57.30 Diverticulosis of large intestine without perforation or abscess without bleeding; I10 Essential (primary) hypertension; E34.0 Carcinoid syndrome; K21.9 Gastro-esophageal reflux disease without esophagitis; Z88.5 Allergy status to narcotic agent; K59.00 Constipation, unspecified; R14.0 Abdominal distension (gaseous)
CPT/HCPCS: 0241U-QW; 36415; 71045-TC-FY; 74019-TC-FY; 74177-TC; 74181-TC; 80053; 82378; 83497; 83605; 83615; 83690; 83735; 84260; 84439; 84443; 84484; 85025; 86301; 86304; 93005; 93010; 93970-TC; 93971; 99285-25; G0378; Q9967

== ENCOUNTER 2023-03-24 23:40 | Emergency (ER) | payer BC ==
[2023-03-24 23:50] VITALS: RESP 18; BMI 34.2
[2023-03-24] MEDS ORDERED: ONDANSETRON 4 MG/2 ML VIAL IVPUSH ONE (23:59)
[2023-03-25] MEDS ORDERED: METOCLOPRAMIDE HCL INJECTION 10 MG/2 ML VIAL IVPUSH ONE (00:08)
[2023-03-25] MEDS ORDERED: SODIUM CHLORIDE 0.9% 500 ML INFUS.BAG IV ONE (00:08)
[2023-03-25] MEDS ORDERED: ACETAMINOPHEN 1000 MG/100 ML BAG IVPB ONE (00:08)
[2023-03-25] MEDS ORDERED: ACETAMINOPHEN/CAFFEINE/BUTALBITAL 1 TAB PO ONE ×2 (00:09→05:03)
[2023-03-25] MEDS ORDERED: METOCLOPRAMIDE HCL INJECTION 10 MG/2 ML VIAL ONE (00:10)
[2023-03-25] MEDS ORDERED: ACETAMINOPHEN INJECTION 100 ML IVPB ONE (00:11)
[2023-03-25 00:38] LABS: BASO % 0.7 % (0-2.0); EOS % 0.6 % (0-4.5); HEMATOCRIT 39.6 % (32.4-45.2); HEMOGLOBIN 13.5 GM/dL (10.7-15.3); LYMPH % 19.8 % (8-40); MCHC 34.1 g/dl (32.0-36.0); MEAN CELL VOLUME 90.9 fl (80-96); MEAN PLT VOLUME 9.6 fl (7.5-11.1); MONO % 6.9 % (3.8-10.2); PLATELET COUNT 242 10^3/uL (134-434); RBC 4.36 M/mm3 (3.60-5.2); RDW 14.1 % (11.6-15.6); WHITE BLOOD COUNT 7.5 K/mm3 (4.0-10.0)
[2023-03-25 00:52] LABS: POTASSIUM 3.5 mmol/L (3.5-5.1)
[2023-03-25] MEDS ORDERED: ACETAMINOPHEN/CAFFEINE/BUTALBITAL 1 TAB ONE (00:54)
[2023-03-25 00:55] LABS: ALBUMIN 3.9 g/dl (3.4-5.0); CALCIUM 9.1 mg/dL (8.5-10.1)
[2023-03-25 00:56] LABS: BLOOD UREA NITROGEN 11.5 mg/dL (7-18)
[2023-03-25 01:01] LABS: BILIRUBIN,TOTAL 0.7 mg/dL (0.2-1); TOT PROT 8.5 g/dl (6.4-8.2)
[2023-03-25 02:21] VITALS: BP 132/71; PULSE 60; TEMP 98.5
[2023-03-25] MEDS ORDERED: MAGNESIUM SULF 50% (8.12 MEQ/2 ML-1 GM VIAL) IVPB ONE (02:49)
[2023-03-25] MEDS ORDERED: MAGNESIUM SULF 50% (8.12 MEQ/2 ML-1 GM VIAL) ONE (05:22)
[2023-03-25 06:02] LABS: EPI CELLS 1 /uL (0-25.1); HYALINE CASTS 0 /uL (0-3.1); URINE APPEARANCE CLEAR; URINE BACTERIA 886 /uL (0-1359); URINE BILIRUBIN NEGATIVE (NEGATIVE); URINE COLOR YELLOW; URINE GLUCOSE (UA) NEGATIVE (NEGATIVE); URINE KETONE 1+ (NEGATIVE); URINE LEUK ESTERASE TRACE (NEGATIVE); URINE NITRITE NEGATIVE (NEGATIVE); URINE PROTEIN NEGATIVE (NEGATIVE); URINE RBC 13 /uL (0-23.9); URINE UROBILINOGEN 0.2 mg/dL (0.2-1.0); URINE WBC 112 /uL (0-25.8)
[2023-03-25] MEDS ORDERED: CEFTRIAXONE 1,000 MG in DEXTROSE 5%-WATER - 50 ML IVPB ONE (06:30)
[2023-03-25] MEDS ORDERED: CEFTRIAXONE 1 GM/50 ML BAG ONE (06:38)
== END 2023-03-25 07:06 | disposition home or self-care (01) ==
LOC: JER 23:40
PROC: 3E03329 Introduction of Other Anti-infective into Peripheral Vein, Percutaneous Approach (ICD-10-PCS; principal; 2023-03-25)
PROC: 3E033GC Introduction of Other Therapeutic Substance into Peripheral Vein, Percutaneous Approach (ICD-10-PCS; 2023-03-25)
PROC: 3E033GC Introduction of Other Therapeutic Substance into Peripheral Vein, Percutaneous Approach (ICD-10-PCS; 2023-03-25)
PROC: 3E033NZ Introduction of Analgesics, Hypnotics, Sedatives into Peripheral Vein, Percutaneous Approach (ICD-10-PCS; 2023-03-25)
DX: R11.2 Nausea with vomiting, unspecified (principal); R51.9 Headache, unspecified; R30.0 Dysuria
CPT/HCPCS: 36415; 70450-TC; 71045-TC-FY; 80053; 81003; 83735; 85025; 87086; 87186; 93005; 93010; 99285-25

== ENCOUNTER 2023-09-25 19:26 | Emergency (ER) | payer BC ==
[2023-09-25 19:33] VITALS: BP 165/89; PULSE 88; RESP 18; TEMP 97.4; BMI 34.9
[2023-09-25] MEDS ORDERED: ACETAMINOPHEN 325 MG TABLET (FP) ONE (21:19)
[2023-09-25] MEDS: ACETAMINOPHEN 500 MG TABLET (FP) PO ONE (21:26)
[2023-09-25] MEDS ORDERED: BACITRACIN 0.9 GM PACKET TP ONE (22:26)
[2023-09-25] MEDS ORDERED: KETOROLAC TROMETHAMINE 30 MG/1 ML VIAL ONE (22:49)
[2023-09-25] MEDS: KETOROLAC TROMETHAMINE 30 MG/1 ML VIAL IM ONE (23:08)
== END 2023-09-25 23:10 | disposition home or self-care (01) ==
LOC: JER 19:26
PROC: 3E0233Z Introduction of Anti-inflammatory into Muscle, Percutaneous Approach (ICD-10-PCS; principal; 2023-09-25)
DX: M25.522 Pain in left elbow (principal); M79.89 Other specified soft tissue disorders; M79.602 Pain in left arm; R51.9 Headache, unspecified; H57.12 Ocular pain, left eye; R20.2 Paresthesia of skin; R11.0 Nausea
CPT/HCPCS: 93005; 93010; 93971; 99284-25

== ENCOUNTER 2024-07-26 02:18 | Emergency (ER) | payer BC ==
[2024-07-26 02:23] VITALS: BMI 36.6
[2024-07-26] MEDS ORDERED: ACETAMINOPHEN 325 MG TABLET (FP) ONE (03:06)
[2024-07-26] MEDS: ACETAMINOPHEN 500 MG TABLET (FP) PO ONE (03:17)
[2024-07-26 03:44] LABS: POTASSIUM 4.1 mmol/L (3.5-5.1)
[2024-07-26 03:46] LABS: CALCIUM 8.7 mg/dL (8.5-10.1)
[2024-07-26 03:47] LABS: ALBUMIN 3.6 g/dl (3.4-5.0); BLOOD UREA NITROGEN 20.3 mg/dL (7-18)
[2024-07-26 03:50] LABS: CREATININE 1.1 mg/dL (0.55-1.3)
[2024-07-26 03:51] LABS: BILIRUBIN,TOTAL 0.6 mg/dL (0.2-1); TOT PROT 7.6 g/dl (6.4-8.2)
[2024-07-26 03:53] LABS: INR 1.03 (0.83-1.09); PROTHROMBIN TIME (PATIENT) 11.8 SEC (9.7-13.0)
[2024-07-26 03:56] LABS: ACTIVATED PTT 27.7 SECONDS (25.2-36.5)
[2024-07-26 04:07] LABS: BASO % 0.5 % (0-2.0); HEMATOCRIT 41.6 % (32.4-45.2); HEMOGLOBIN 13.7 GM/dL (10.7-15.3); LYMPH % 33.7 % (8-40); MCH 30.5 pg (25.7-33.7); MCHC 32.9 g/dl (32.0-36.0); MEAN CELL VOLUME 92.9 fl (80-96); MEAN PLT VOLUME 9.3 fl (7.5-11.1); MONO % 9.7 % (3.8-10.2); NEUT % 53.1 % (42.8-82.8); PLATELET COUNT 276 10^3/uL (134-434); RBC 4.48 M/mm3 (3.60-5.2); RDW 15.1 % (11.6-15.6)
[2024-07-26 05:12] LABS: MAGNESIUM 1.9 mg/dL (1.8-2.4)
[2024-07-26] MEDS ORDERED: KETOROLAC TROMETHAMINE 15 MG/ML VIAL ONE ×2 (05:59→10:09)
[2024-07-26] MEDS: KETOROLAC TROMETHAMINE 15 MG/ML VIAL IVPUSH ONE ×2 (06:04→10:12)
[2024-07-26 09:25] VITALS: BP 142/68; PULSE 58; RESP 18; TEMP 98.1
== END 2024-07-26 11:06 | disposition home or self-care (01) ==
LOC: JER 02:18
PROC: 3E0333Z Introduction of Anti-inflammatory into Peripheral Vein, Percutaneous Approach (ICD-10-PCS; principal; 2024-07-26)
PROC: 3E0333Z Introduction of Anti-inflammatory into Peripheral Vein, Percutaneous Approach (ICD-10-PCS; 2024-07-26)
DX: M79.661 Pain in right lower leg (principal); M79.89 Other specified soft tissue disorders
CPT/HCPCS: 36415; 71275-TC; 80053; 83735; 85025; 85379; 85610; 85730; 93971-TC; 99284-25; Q9967